=== PATIENT | female | born 1960 | race Caucasian/White ===

== ENCOUNTER 2019-04-26 14:00 | Observation (INO) | payer MEDICAID, OTHER ==
[2019-04-26 14:53] LABS: Absolute Lymphocytes (CBC) 1.5 K/uL (0.7-4.9); Basophils % 0.7 % (0-1.3); Eosinophils % 0.1 % (0-4.4); Lymphocytes % 26.9 % (15.3-44.8); MPV 7.9 fL (7.6-11.3); Monocytes % 4.9 % (3.3-12.3); RBC Red Blood Cell Count 4.66 M/uL (3.86-4.86)
[2019-04-26 14:54] LABS: Protime INR 1.08
[2019-04-26 15:11] LABS: ALT/SGPT 23 U/L (12-78); AST/SGOT 16 U/L (15-37); Albumin 3.7 g/dL (3.4-5.0); Alkaline Phosphatase 137 U/L (45-117); BUN Blood Urea Nitrogen 11 mg/dL (7-18); Bicarbonate 20 mmol/L (21-32); Bilirubin Direct 0.1 mg/dL (0-0.2); Bilirubin Total 0.4 mg/dL (0.2-1.0); Glucose Level 109 mg/dL (74-106); Magnesium 2.4 mg/dL (1.8-2.4); NT PRO-BNP 98 pg/mL (<125); Potassium 3.6 mmol/L (3.5-5.1); Protein, Total 7.9 g/dL (6.4-8.2); Sodium Level 141 mmol/L (136-145); Troponin (Emerg Dept Use Only) < 0.02 ng/mL (0.0-0.045)
--- NOTE | 2019-04-26 15:28 | ER ---
Nurse's Notes [facility] Name: Sharon Nunez Age: 58 yrs Sex: Female : 1960 Arrival Date: 04/26/2019 Time: 14:02 Bed 20 Private MD: Diagnosis: Unstable angina Presentation: 04/26 14:09 Presenting complaint: Patient states: chest pressure, SOB that began yesterday. Pt also aa5 states "I have an abdominal aneurysm and my belly just doesn't feel right". Transition of care: patient was not received from another setting of care. Onset of symptoms was April 2019. Risk Assessment: Do you want to hurt yourself or someone else? Patient reports no desire to harm self or others. Initial Sepsis Screen: Does the patient meet any 2 criteria? No. Patient's initial sepsis screen is negative. Does the patient have a suspected source of infection? No. Patient's initial sepsis screen is negative. Care prior to arrival: None. 14:09 Acuity: GER 2 aa5 14:09 Method Of Arrival: Ambulatory aa5 Historical: - Allergies: 14:12 No Known Allergies; aa5 - Home Meds: 14:25 Pristiq 100 mg oral Tb24 1 tab once daily [Active]; Plavix 75 mg Oral tab 1 tab once aa5 daily [Active]; Adderall XR 30 mg Oral cp24 twice a day [Active]; ropinirole 1 mg oral tab twice a day [Active]; zolpidem 10 mg Oral tab once daily [Active]; Seroquel 300 mg Oral tab 1 tab once daily [Active]; Lipitor 40 mg Oral tab once daily [Active]; clonazepam 2 mg oral TbDL 3 times per day [Active]; aspirin 81 mg Oral chew 1 tab once daily [Active]; tramadol 50 mg Oral tab 3 times a day [Active]; - PMHx: 14:12 ADD/ADHD; Hypertension; Abdominal aneurysm; Myocardial infarction; aa5 - PSHx: 14:12 Heart stents; aa5 14:13 Cholecystectomy; aa5 - Immunization history:: Adult Immunizations unknown. - Social history:: Smoking status: Patient uses tobacco products, denies chronic smoking, but will smoke occasionally. - Ebola Screening: : No symptoms or risks identified at this time. Screenin:46 Abuse screen: Denies threats or abuse. Denies injuries from another. Nutritional aj screening: No deficits noted. Tuberculosis screening: No symptoms or risk factors identified. Fall Risk None identified. Assessment: 14:46 General: Appears in no apparent distress. comfortable, Behavior is appropriate for age, aj anxious. Pain: Complains of pain in chest and abdomen Pain does not radiate. Pain began gradually. Cardiovascular: Reports chest pain, Capillary refill < 3 seconds in bilateral fingers Patient's skin is warm and dry. Respiratory: Airway is patent Respiratory effort is even, unlabored, Respiratory pattern is regular, symmetrical. Derm: Skin is intact, is healthy with good turgor, Skin is pink, warm \\T\\ dry. normal. 15:32 Reassessment: Patient appears in no apparent distress at this time. No changes from aj previously documented assessment. Patient and/or family updated on plan of care and expected duration. Pain level reassessed. Patient is alert, oriented x 3, equal unlabored respirations, skin warm/dry/pink. Patient requested HOB lowered and provided blankets to use as a pillow. Patient stated "I'm going to try to sleep while I wait for a room.". 16:46 Reassessment: Patient appears in no apparent distress at this time. No changes from aj previously documented assessment. Patient and/or family updated on plan of care and expected duration. Pain level reassessed. Patient is alert, oriented x 3, equal unlabored respirations, skin warm/dry/pink. Patient is resting comfortably in bed with eyes closed. In NAD. 19:23 Reassessment: Patient appears in no apparent distress at this time. No changes from aj previously documented assessment. Patient and/or family updated on plan of care and expected duration. Pain level reassessed. Patient reports pain continued. Physician notified, new orders given. Vital Signs: 14:13 BP 137 / 89; Pulse 104; Resp 18 S; Temp 99.6(O); Pulse Ox 97% on R/A; Weight 77.11 kg aa5 (R); Height 5 ft. 4 in. (162.56 cm) (R); Pain 7/10; 15:31 BP 143 / 77; Pulse 77; Resp 14; Pulse Ox 96% on R/A; aj 16:46 BP 124 / 73; Pulse 83; Resp 20; Pulse Ox 96% on R/A; aj 19:22 BP 116 / 54; Pulse 75; Resp 16; Pulse Ox 97% on R/A; aj 21:01 BP 135 / 74; Pulse 69; Resp 18; Temp 98.6; Pulse Ox 96% on R/A; aj 14:13 Body Mass Index 29.18 (77.11 kg, 162.56 cm) aa5 ED Course: 14:02 Patient arrived in ED. rg4 14:09 Arm band placed on. aa5 14:11 Triage completed. aa5 14:12 EKG completed in triage. Results shown to MD. aa5 14:17 Silas Finn, RN is Primary Nurse. bp 14:28 Jose Manuel Pierson MD is Attending Physician. gs 14:35 EKG done, by telephone technician. reviewed by Jose Manuel Pierson MD. dt2 14:46 Patient has correct armband on for positive identification. Placed in gown. Bed in low aj position. Call light in reach. Side rails up X2. child monitor on. Pulse ox on. NIBP on. 14:46 Inserted saline lock: 20 gauge in right antecubital area, using aseptic technique. aj Blood collected. Patient maintains SpO2 saturation greater than 95% on room air. 14:55 XRAY Chest (1 view) In Process Unspecified. EDMS 15:28 Javier Lorenzo DO is Hospitalizing Provider. gs 21:15 No provider procedures requiring assistance completed. Patient admitted, IV remains in aj place. intact. 21:16 Primary Nurse role handed off by Silas Finn, RN aj 21:32 Clara Garnica, RN is Primary Nurse. aj Administered Medications: 15:30 Drug: fentaNYL (PF) 50 mcg Route: IVP; Site: right antecubital; aj 16:48 Follow up: Response: Pain is unchanged, physician notified aj 15:30 Drug: Zofran 4 mg Route: IVP; Site: right antecubital; aj 16:48 Follow up: Response: Nausea is decreased aj 16:00 Drug: Nitro-Bid Ointment 2 % 0.5 inches Route: Transdermal; Site: anterior chest wall; bp 16:26 Drug: fentaNYL (PF) 50 mcg Route: IVP; Site: right antecubital; aj 16:48 Follow up: Response: Pain is decreased aj 19:21 Drug: morphine 4 mg Route: IVP; Site: right antecubital; austin 21:02 Follow up: Response: Pain is decreased aj 19:22 Drug: Zofran 4 mg Route: IVP; Site: right antecubital; [place]in 21:02 Follow up: Response: No adverse reaction austin Outcome: 15:28 Decision to Hospitalize by Provider. gerardo 21:15 Admitted to Tele accompanied by tech, via wheelchair, with chart, Report called to austin Martinez 21:15 Condition: good 21:15 Instructed on the need for admit. 21:16 Patient left the ED. austin 21:32 Patient left the ED. austin Signatures: Dispatcher [employer] EDClara Hurt RN RN Emilee Recinos, RN RN Katherine Calvillo4 Jose Manuel Pierson MD MD gs Peltier, Brian, RN RN Tonya Carlos dt2 Corrections: (The following items were deleted from the chart) 21:03 21:01 BP 135 / 74; Pulse 69bpm; Resp 18bpm; Pulse Ox 96% RA; austin avila
--- NOTE | 2019-04-26 15:28 | EDPHYS ---
Physician Documentation [facility] Name: Sharon Nunez Age: 58 yrs Sex: Female : 1960 Arrival Date: 04/26/2019 Time: 14:02 Bed 20 Private MD: ED Physician Jose Manuel Pierson HPI: 04/26 17:58 This 58 yrs old Female presents to ER via Ambulatory with complaints of Chest gs Pain. 17:58 The patient or guardian reports chest pain that is located primarily in the anterior gs chest wall. Onset: gradually, 2 day(s) ago, and became worse and became persistent. The pain radiates to diaphragm. Associated signs and symptoms: Pertinent positives: abdominal pain, shortness of breath, vomiting. The chest pain is described as a heaviness. Duration: The patient or guardian reports multiple episodes, that are intermittent, that wax and wane, with no pattern, the episodes last approximately 10 minute(s). Modifying factors: The symptoms are alleviated by nothing. the symptoms are aggravated by nothing. Severity of pain: At its worst the pain was severe in the emergency department the pain is unchanged. The patient has experienced similar episodes in the past, several times. 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 Historical: - Allergies: 14:12 No Known Allergies; aa5 - Home Meds: 14:25 Pristiq 100 mg oral Tb24 1 tab once daily [Active]; Plavix 75 mg Oral tab 1 tab once aa5 daily [Active]; Adderall XR 30 mg Oral cp24 twice a day [Active]; ropinirole 1 mg oral tab twice a day [Active]; zolpidem 10 mg Oral tab once daily [Active]; Seroquel 300 mg Oral tab 1 tab once daily [Active]; Lipitor 40 mg Oral tab once daily [Active]; clonazepam 2 mg oral TbDL 3 times per day [Active]; aspirin 81 mg Oral chew 1 tab once daily [Active]; tramadol 50 mg Oral tab 3 times a day [Active]; - PMHx: 14:12 ADD/ADHD; Hypertension; Abdominal aneurysm; Myocardial infarction; aa5 - PSHx: 14:12 Heart stents; aa5 14:13 Cholecystectomy; aa5 - Immunization history:: Adult Immunizations unknown. - Social history:: Smoking status: Patient uses tobacco products, denies chronic smoking, but will smoke occasionally. - Ebola Screening: : No symptoms or risks identified at this time. ROS: 17:58 All other systems are negative. gs Exam: 17:58 Head/Face: Normocephalic, atraumatic. Eyes: Pupils equal round and reactive to light, gs extra-ocular motions intact. Lids and lashes normal. Conjunctiva and sclera are non-icteric and not injected. Cornea within normal limits. Periorbital areas with no swelling, redness, or edema. ENT: Nares patent. No nasal discharge, no septal abnormalities noted. Tympanic membranes are normal and external auditory canals are clear. Oropharynx with no redness, swelling, or masses, exudates, or evidence of obstruction, uvula midline. Mucous membranes moist. Neck: Trachea midline, no thyromegaly or masses palpated, and no cervical lymphadenopathy. Supple, full range of motion without nuchal rigidity, or vertebral point tenderness. No Meningismus. Chest/axilla: Normal chest wall appearance and motion. Nontender with no deformity. No lesions are appreciated. Cardiovascular: Regular rate and rhythm with a normal S1 and S2. No gallops, murmurs, or rubs. Normal PMI, no JVD. No pulse deficits. Respiratory: Lungs have equal breath sounds bilaterally, clear to auscultation and percussion. No rales, rhonchi or wheezes noted. No increased work of breathing, no retractions or nasal flaring. Abdomen/GI: Soft, non-tender, with normal bowel sounds. No distension or tympany. No guarding or rebound. No evidence of tenderness throughout. Back: No spinal tenderness. No costovertebral tenderness. Full range of motion. Skin: Warm, dry with normal turgor. Normal color with no rashes, no lesions, and no evidence of cellulitis. MS/ Extremity: Pulses equal, no cyanosis. Neurovascular intact. Full, normal range of motion. Neuro: Awake and alert, GCS 15, oriented to person, place, time, and situation. Cranial nerves II-XII grossly intact. Motor strength 5/5 in all extremities. Sensory grossly intact. Cerebellar exam normal. Normal gait. 17:58 Constitutional: The patient appears alert, awake. 17:58 ECG was reviewed by the Attending Physician. Vital Signs: 14:13 BP 137 / 89; Pulse 104; Resp 18 S; Temp 99.6(O); Pulse Ox 97% on R/A; Weight 77.11 kg aa5 (R); Height 5 ft. 4 in. (162.56 cm) (R); Pain 7/10; 15:31 BP 143 / 77; Pulse 77; Resp 14; Pulse Ox 96% on R/A; aj 16:46 BP 124 / 73; Pulse 83; Resp 20; Pulse Ox 96% on R/A; aj 19:22 BP 116 / 54; Pulse 75; Resp 16; Pulse Ox 97% on R/A; aj 21:01 BP 135 / 74; Pulse 69; Resp 18; Temp 98.6; Pulse Ox 96% on R/A; aj 14:13 Body Mass Index 29.18 (77.11 kg, 162.56 cm) aa5 MDM: 14:53 Patient medically screened. gs 17:58 Differential diagnosis: abnormal EKG, acute myocardial infarction, coronary artery gs disease chest wall pain, unstable angina. Data reviewed: vital signs, nurses notes, lab test result(s), EKG, radiologic studies. Counseling: I had a detailed discussion with the patient and/or guardian regarding: the historical points, exam findings, and any diagnostic results supporting the discharge/admit diagnosis, lab results, radiology results, the need for further work-up and treatment in the hospital. Response to treatment: the patient's symptoms have markedly improved after treatment, the patient's condition has returned to base line, and as a result, I will admit patient. Physician consultation: Gio Lundberg MD and will see patient in office. 04/26 14:35 Order name: Basic Metabolic Panel; Complete Time: 15:04/26 14:35 Order name: CBC with Diff; Complete Time: 15:04/26 14:35 Order name: LFT's; Complete Time: 15:04/26 14:35 Order name: Magnesium; Complete Time: 15:04/26 14:35 Order name: NT PRO-BNP; Complete Time: 15:04/26 14:35 Order name: PT-INR; Complete Time: 15:04/26 14:35 Order name: Troponin (emerg Dept Use Only); Complete Time: 15:14 04/26 14:35 Order name: XRAY Chest (1 view); Complete Time: 15:41 aj 04/26 15:49 Order name: Lipase; Complete Time: 17:41 04/26 20:55 Order name: Troponin (emerg Dept Use Only) 04/26 21:30 Order name: Troponin (Emerg Dept Use Only) EDOR 04/26 14:35 Order name: EKG; Complete Time: 14:36 04/26 14:35 Order name: Cardiac monitoring; Complete Time: 14:48 04/26 14:35 Order name: EKG - Nurse/Tech; Complete Time: 14:48 04/26 14:35 Order name: IV Saline Lock; Complete Time: 14:48 04/26 14:35 Order name: Labs collected and sent; Complete Time: 14:48 04/26 14:35 Order name: O2 Per Protocol; Complete Time: 14:48 04/26 14:35 Order name: O2 Sat Monitoring; Complete Time: 14:49 EC:58 Rate is 99 beats/min. Rhythm is regular. MD interval is normal. QRS interval is normal. gs QT interval is normal. T waves are Flattened in lead aVL. Clinical impression: NSR w/ Non-specific ST/T Changes. Interpreted by me. Administered Medications: 15:30 Drug: fentaNYL (PF) 50 mcg Route: IVP; Site: right antecubital; aj 16:48 Follow up: Response: Pain is unchanged, physician notified aj 15:30 Drug: Zofran 4 mg Route: IVP; Site: right antecubital; aj 16:48 Follow up: Response: Nausea is decreased aj 16:00 Drug: Nitro-Bid Ointment 2 % 0.5 inches Route: Transdermal; Site: anterior chest wall; bp 16:26 Drug: fentaNYL (PF) 50 mcg Route: IVP; Site: right antecubital; aj 16:48 Follow up: Response: Pain is decreased aj 19:21 Drug: morphine 4 mg Route: IVP; Site: right antecubital; aj 21:02 Follow up: Response: Pain is decreased aj 19:22 Drug: Zofran 4 mg Route: IVP; Site: right antecubital; aj 21:02 Follow up: Response: No adverse reaction aj Disposition: 04/26/19 15:28 Hospitalization ordered by Javier Lorenzo for Inpatient Admission. Preliminary diagnosis is Unstable angina. - Bed requested for Telemetry/MedSurg (Inpatient). - Status is Inpatient Admission. aj - Condition is Stable. - Problem is new. - Symptoms have improved. UTI on Admission? No Signatures: Dispatcher [employer] EDMS Clara Garnica RN RN Emilee Sanders RN RN aa5 Duane Velazquez PA PA [id number] Jose Manuel Pierson MD MD Silas Finn RN RN bp Corrections: (The following items were deleted from the chart) 20:55 15:28 Hospitalization Ordered by Javier Lorenzo DO for Inpatient Admission. Preliminary jr8 diagnosis is Unstable angina. Bed requested for Telemetry/MedSurg (Inpatient). Status is Inpatient Admission. Condition is Stable. Problem is new. Symptoms have improved. UTI on Admission? No. 21:16 20:55 04/26/2019 15:28 Hospitalization Ordered by Javier Lorenzo DO for Inpatient aj Admission. Preliminary diagnosis is Unstable angina. Bed requested for Telemetry/MedSurg (Inpatient). Status is Inpatient Admission. Condition is Stable. Problem is new. Symptoms have improved. UTI on Admission? No. jr8 21:32 21:16 04/26/2019 15:28 Hospitalization Ordered by Javier Lorenzo DO for Inpatient aj Admission. Preliminary diagnosis is Unstable angina. Bed requested for Telemetry/MedSurg (Inpatient). Status is Inpatient Admission. Condition is Stable. Problem is new. Symptoms have improved. UTI on Admission? No. aj
--- NOTE | 2019-04-26 15:39 | RAD REPORT ---
EXAM DESCRIPTION: [place] Single View04/26/2019 2:55 pm CLINICAL HISTORY: Chest pain COMPARISON: 2011 FINDINGS: An opacity overlies left pulmonary artery Otherwise, lungs appear clear of acute infiltrate. The heart is normal size IMPRESSION: Opacity overlying the left pulmonary artery may represent confluence of pulmonary vessel s and/or descending thoracic aorta. It is recommended that the patient have a PA and lateral chest se pranay for further evaluation
[2019-04-26] MEDS ORDERED: FENTANYL CITR 100 MCG/2 ML ONE (15:41)
[2019-04-26] MEDS ORDERED: ONDANSETRON 4 MG/2 ML VIAL ONE ×2 (15:41→19:32)
[2019-04-26] MEDS ORDERED: NITROGLYCERIN 1 GM PKT TD ONE (16:04)
--- NOTE | 2019-04-26 16:10 | P.HP ---
Certification for Inpatient Patient admitted to: Observation With expected LOS: <2 Midnights Patient will require the following post-hospital care: None Practitioner: I am a practitioner with admitting privileges, knowledge of patient current condition, hospital course, and medical plan of care. Services: Services provided to patient in accordance with Admission requirements found in Title 42 Section 412.3 of the Code of Federal Regulations Patient History Date of Service: 04/26/19 Primary Care Provider: Dr. Rubio([facility]); Cardiology-Dr. Lundberg Reason for admission: Chest pain History of Present Illness: 58-year-old female presented to the emergency room with chest pain. Patient presented with chest pain to the center of her chest. It felt like a pressure-like sensation. It was associated with some nausea and shortness of breath. Patient with history of CAD and prior stents, tobacco abuse, AAA, depression with anxiety and hyperlipidemia. 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 She has a AAA measuring 5 cm. This has increased in size as compared to the past. She called her tractor engine assembler due to the chest pain. It was recommended that she go to the ER for further evaluation. In the ER patient evaluated. EKG shows no significant ST changes. Initial troponin unremarkable. Chest x-ray stable. CBC unremarkable. Sodium 141, potassium 3.6, BUN of 11, creatinine 0.9 with a GFR 63. Lipase pending. Patient was admitted for further evaluation and observation. When I saw the patient ER, she did not appear in any significant distress. Patient admits tobacco abuse. Reports a history of pancreatitis in the past. She reports that her cardiologists had anticipated the need for heart catheterization. Home medications list reviewed: Yes - Past Medical/Surgical History Diabetic: No -: CAD with prior stents -: Hyperlipidemia -: History of pancreatitis -: GERD -: Depression with anxiety -: AAA -: Heart catheterization with prior stent -: Cholecystectomy Psychosocial/ Personal History: Patient lives at home. - Family History Family History: Reviewed- Non-Contributory - Social History Smoking Status: Heavy Tobacco smoker (>10 cigarettes/day) Counseled patient to stop smoking for: less than 10 minutes Smoking therapy provided: Yes Patient receptive to therapy: Yes Alcohol use: No CD- Drugs: No Caffeine use: Yes Place of Residence: Home Review of Systems General: As per HPI Eyes: Unremarkable ENT: Unremarkable Respiratory: Shortness of Breath, As per HPI Cardiovascular: Chest Pain, As per HPI Gastrointestinal: Nausea, As per HPI Genitourinary: Unremarkable Musculoskeletal: Unremarkable Integumentary: Unremarkable Neurological: Unremarkable Lymphatics: Unremarkable Physical Examination - Physical Exam General: Alert, In no apparent distress, Oriented x3, Cooperative HEENT: Atraumatic, Normocephalic, PERRLA, Mucous membr. moist/pink, EOMI Neck: Supple, No Thyromegaly Respiratory: Clear to auscultation bilaterally, Normal air movement Cardiovascular: Normal pulses, Regular rate/rhythm Gastrointestinal: Normal bowel sounds, Soft and benign, Non-distended, No tenderness, No masses, No rebound, No guarding Musculoskeletal: No erythema, No tenderness, No warmth Integumentary: No tenderness/swelling, No erythema, No warmth, No cyanosis Neurological: Normal speech, Normal strength at 5/5 x4 extr, Normal tone, Normal affect - Studies Laboratory Data (last 24 hrs) 04/26/19 14:43: PT 12.7 H, INR 1.08 04/26/19 14:43: WBC 5.5, Hgb 13.6, Hct 41.0, Plt Count 319 04/26/19 14:43: Sodium 141, Potassium 3.6, BUN 11, Creatinine 0.91, Glucose 109 H, Magnesium 2.4, Total Bilirubin 0.4, AST 16, ALT 23, Alkaline Phosphatase 137 H Assessment and Plan - Plan Impression: Chest pain likely unstable angina with history of CAD and prior stents Hypertension Depression with anxiety Hyperlipidemia Tobacco abuse Suspect COPD Plan: Chest pain likely unstable angina with history of CAD and prior stents: Patient will be admitted for further evaluation and observation. Will monitor cardiac enzymes and telemetry. Will discuss case with cardiology. ER physician reported cardiology plans for heart catheterization to further evaluate. Will continue with her medication of aspirin, Plavix and Lipitor. Will add metoprolol. Will provide nitroglycerin and morphine as needed. Await further recommendation from cardiology. Will also start DVT prophylaxis- Lovenox. Hypertension: Blood pressure slightly elevated. Will start metoprolol. Depression with anxiety: Will restart her home medication of Pristiq, Seroquel and clonazepam. Hyperlipidemia: Continue home medication Tobacco abuse: Will provide tobacco cessation education. Will provide nicotine patch as needed. Suspect COPD: Will provide medication. Patient may require medication at discharge. Discharge Plan: Home Plan to discharge in: 24 Hours - Advance Directives Does patient have a Living Will: No Does patient have a Durable POA for Healthcare: No - Code Status/Comfort Care Code Status Assessed: Yes (Patient is full code) Time Spent Managing Pts Care (In Minutes): 55
--- NOTE | 2019-04-26 16:20 | EKG ---
Test Date: 2019-04-26 Test Time: 14:13:07 Lightning Rod Erector: EMI MEASUREMENT RESULTS: Intervals: Rate: 99 [place]: 124 QRSD: 76 QT: 360 QTc: 462 [place]: P: 61 [place]: 124 QRS: 17 T: 55 INTERPRETIVE STATEMENTS: Normal sinus rhythm Normal ECG Compared to ECG 05/12/2011 15:38:54 No significant changes Electronically Signed On 04-26-19 16:19:22 CDT by Gio Lundberg
[2019-04-26] MEDS ORDERED: MORPHINE 4 MG/ML SYR ONE (19:32)
[2019-04-26] MEDS ORDERED: NITROGLYCERIN 0.4 MG/TAB SL PRN (21:47)
[2019-04-26] MEDS ORDERED: ALBUTEROL 2.5 MG/3 ML NEB SOL NEB PRN (21:47)
[2019-04-26] MEDS ORDERED: ACETAMINOPHEN 500 MG TAB PO PRN (21:47)
[2019-04-26] MEDS ORDERED: IPRATROPIUM BROM 0.5MG/2.5ML NEB PRN (21:47)
[2019-04-26] MEDS: clonazePAM 1 MG TAB PO PRN (23:03)
[2019-04-26] MEDS: FAMOTIDINE 20 MG TAB PO SCH (23:03)
[2019-04-26] MEDS: ATORVASTATIN 40 MG TAB PO SCH (23:03)
[2019-04-26] MEDS: QUETIAPINE 100MG TAB PO SCH (23:03)
[2019-04-26] MEDS: METOPROLOL TAR 25 MG TAB PO SCH (23:04)
[2019-04-26 23:59] LABS: CKMB Creatine Kinase MB 1.2 ng/mL (0.3-3.6); Thyroid Stimulating Hormone 2.9 uIU/mL (0.360-3.740)
[2019-04-27 01:53] LABS: Urine Appearance CLOUDY; Urine Blood NEGATIVE (NEG); Urine Color YELLOW; Urine Glucose NEGATIVE (NEG); Urine Protein NEGATIVE (NEG); Urine Specific Gravity 1.025 (1.005-1.030); Urine Urobilinogen 0.2 mg/dL (0.2-1.0)
[2019-04-27 02:14] LABS: Urine Bilirubin NEGATIVE (NEG); Urine Microscopic Reflex ORDER UMIC
[2019-04-27 02:15] LABS: Urine Amorphous Sediment 4+ /HPF (NONE SEEN); Urine Bacteria <20 /HPF (<20); Urine Culture Reflex Order NOT NEEDED; Urine RBC <5 /HPF (NONE SEEN)
[2019-04-27] MEDS: KETOROLAC 30 MG/ML INJ IV PRN ×2 (04:24→23:47)
[2019-04-27] MEDS: METOPROLOL TAR 25 MG TAB PO SCH (04:48)
[2019-04-27 06:30] LABS: Absolute Lymphocytes (CBC) 2.5 K/uL (0.7-4.9); Basophils % 0.6 % (0-1.3); Eosinophils % 0.2 % (0-4.4); Hematocrit 35.6 % (36.0-45.0); Lymphocytes % 43.1 % (15.3-44.8); Monocytes % 7.7 % (3.3-12.3); RBC Red Blood Cell Count 4.09 M/uL (3.86-4.86)
[2019-04-27 06:44] LABS: BUN Blood Urea Nitrogen 16 mg/dL (7-18); Bicarbonate 25 mmol/L (21-32); CKMB Creatine Kinase MB < 1.0 ng/mL (0.3-3.6); Creatine Phosphokinase 89 U/L (26-192); Glucose Level 88 mg/dL (74-106); HDL Cholesterol 32 mg/dL (40-60); LDL Cholesterol, Calculated 75 (<130); Magnesium 2.5 mg/dL (1.8-2.4); Potassium 3.8 mmol/L (3.5-5.1); Sodium Level 142 mmol/L (136-145); Troponin I < 0.02 ng/mL (0.0-0.045)
[2019-04-27] MEDS ORDERED: NA CHLORIDE 0.9% 250 ML IV ONE (08:22)
[2019-04-27] MEDS: MORPHINE 2 MG/ML SYR IV PRN ×2 (08:51→16:23)
[2019-04-27] MEDS: ONDANSETRON 4 MG/2 ML VIAL IV PRN ×3 (08:51→23:47)
[2019-04-27] MEDS: ASPIRIN EC 81 MG TAB PO SCH (08:53)
[2019-04-27] MEDS: FAMOTIDINE 20 MG TAB PO SCH ×2 (08:56→20:30)
[2019-04-27] MEDS: NICOTINE 21 MG/PAT TD SCH (08:57)
[2019-04-27] MEDS: CLOPIDOGREL 75 MG TABLET PO SCH (08:58)
[2019-04-27] MEDS ORDERED: FAMOTIDINE 20 MG TAB PO SCH (09:00)
[2019-04-27] MEDS ORDERED: ENOXAPARIN 40 MG/0.4 ML SQ SCH (09:00)
[2019-04-27] MEDS: DESVENLAFAXINE SUCCINATE 50 MG ER TAB PO SCH (09:00)
[2019-04-27] MEDS ORDERED: POTASSIUM CL SA 10 MEQ TAB PO ONE (09:00)
[2019-04-27] MEDS ORDERED: HEPA 1000U/500MLS 1,000 UNIT/500 ML BAG IV ONE (10:33)
--- NOTE | 2019-04-27 12:29 | P.PN ---
Subjective Date of Service: 04/27/19 Primary Care Provider: Dr. Rubio([facility]); Cardiology-Dr. Lundberg Chief Complaint: Chest pain Subjective: Improving Physical Examination - Vital Signs Temperature: 97.4 F Blood Pressure: 94/56 Pulse: 66 Respirations: 18 Pulse Ox (%): 95 - Physical Exam General: Alert, In no apparent distress, Oriented x3, Cooperative HEENT: Atraumatic Neck: Supple Respiratory: Clear to auscultation bilaterally, Normal air movement Cardiovascular: Normal pulses, Regular rate/rhythm Gastrointestinal: Normal bowel sounds, Soft and benign, Non-distended, No tenderness, No masses, No rebound, No guarding Musculoskeletal: No erythema, No tenderness, No warmth Neurological: Normal speech, Normal strength at 5/5 x4 extr, Normal tone, Normal affect - Studies Laboratory Data (last 24 hrs) 04/26/19 14:43: Lipase 83 04/26/19 14:43: PT 12.7 H, INR 1.08 04/26/19 14:43: WBC 5.5, Hgb 13.6, Hct 41.0, Plt Count 319 04/26/19 14:43: Sodium 141, Potassium 3.6, BUN 11, Creatinine 0.91, Glucose 109 H, Magnesium 2.4, Total Bilirubin 0.4, AST 16, ALT 23, Alkaline Phosphatase 137 H Medications List Reviewed: Yes Assessment & Plan Discharge Plan: Home Plan to discharge in: 24 Hours Physician Review Additional Text: Impression: Chest pain likely unstable angina with history of CAD and prior stents Hypertension Depression with anxiety Hyperlipidemia Tobacco abuse Suspect COPD AAA Plan: Chest pain likely unstable angina with history of CAD and prior stents: So far cardiac enzymes unremarkable. Spoke with cardiology. Cardiology plans for heart catheterization to evaluate for CAD and AAA. Await findings with recommendation. Will discontinue metoprolol due to low blood pressure. Continue with current medications and plan of care. Possible discharge as early as today depending heart catheterization results. Hypertension: Discontinue metoprolol due to low blood pressure. Will continue to monitor blood pressures closely. Depression with anxiety: Continue home medication of Pristiq, Seroquel and clonazepam. Hyperlipidemia: Continue home medication Tobacco abuse: Will continue to provide tobacco cessation education. Will provide nicotine patch as needed. Suspect COPD: Will provide medication. Patient may require medication at discharge. AAA: Patient will have heart catheterization and angiogram to further evaluate. Await recommendations from cardiology. Time Spent Managing Pts Care (In Minutes): 55
[2019-04-27] MEDS ORDERED: LORazepam 2 MG/ML VIAL IV PRN (13:18)
[2019-04-27] MEDS ORDERED: NA CHLORIDE 0.9% 500 ML ONE (14:27)
[2019-04-27] MEDS ORDERED: FENTANYL CITR 100 MCG/2 ML ONE (14:43)
[2019-04-27] MEDS ORDERED: ATROPINE SULF 1 MG/10 ML SYR IV ONE (14:44)
[2019-04-27] MEDS ORDERED: MIDAZOLAM HCL 5 MG/5 ML INJ ONE ×2 (14:44→14:56)
[2019-04-27] MEDS ORDERED: NA CHLORIDE 0.9% 0 ML ONE (14:44)
--- NOTE | 2019-04-27 15:20 | CON ---
Date of Consultation: 04/26/2019 Reason For Consultation: Chest pain. History Of Present Illness: Ms. Nunez is a 58-year-old woman, she is known to me from my office. Recently, had an abdominal aortic ultrasound showing a large abdominal aortic aneurysm approximately 5 x 5 cm. She has had a history of coronary artery disease, hypertension, dyslipidemia, anxiety. Kyung kilgore came into the emergency room with substernal chest pressure radiating to both arms with nausea, ricci phoresis, shortness of breath. Denied PND, orthopnea, pedal edema, palpitations, or syncope. Her EK G was normal. Her troponin was negative. Past Medical History: As stated above. Allergies: NONE. Review of Systems: Negative. Social History: Positive for tobacco. Family History: Positive for heart disease. Medications: At home include aspirin, Plavix, Lipitor, clonazepam. Physical Examination: Vital Signs: Stable. She was afebrile. HEENT: Negative. Neck: Supple. No bruit. Chest: Clear to auscultation and percussion. Cardiac: Revealed a regular rhythm and rate. No murmurs, gallops, or rubs. Abdomen: Benign. Extremities: Revealed no clubbing, cyanosis, or edema. Diagnostic Data: As stated earlier. Impression And Plan: 1.Unstable angina. 2.Abdominal aortic aneurysm. 3.History of coronary artery disease. 4.Dyslipidemia. 5.Anxiety. I think I will proceed with a heart catheterization to define her coronary anatomy. Do an abdominal angiogram to see the abdominal aneurysm true size. The patient understands the risk and the benefits of the procedure and she agrees to proceed. The procedure will be done on 04/27/2019. CIERA/MP Voice ID: [id number] Report ID: [id number]
[2019-04-27] MEDS ORDERED: ACETAMINOPHEN 325 MG TABLET PO PRN (16:15)
[2019-04-27] MEDS: NA CHLORIDE 0.9% 1,000 ML IV SCH (16:26)
[2019-04-27] MEDS: QUETIAPINE 100MG TAB PO SCH (20:30)
[2019-04-27] MEDS: ATORVASTATIN 40 MG TAB PO SCH (20:30)
[2019-04-27] MEDS: clonazePAM 1 MG TAB PO PRN (20:31)
--- NOTE | 2019-04-28 02:17 | OP ---
Date of Procedure: 04/27/2019 Surgeon: Gio Lundberg MD Sleeping Bag Filler: Lucy Cheung. The patient was admitted on 04/26/[address] Lorenzo' service with unstable angina. Has also severe abdominal pain, known abdominal aortic aneurysm. She was brought to the label machine operator today as an inpatie nt. She had a selective coronary arteriogram, left heart catheterization, abdominal angiogram. She received 7 mg of Versed and 100 of fentanyl for sedation. A 6-Moroccan sheath introduced in the right common femoral artery. StarClose was used to close the case. Left heart catheterization with Judkin s catheter revealed 100% RCA occlusion. She had diffuse plaquing in the left anterior descending and circumflex with collaterals to the RCA. Abdominal angiography showed a large 5 x 5 aneurysm infrare nal, normal renals. Moderate right common iliac artery stenosis. There were no complications. Bloo d loss was 5 cc. Total conscious sedation was 45 minutes. Postoperative Diagnoses: Severe CAD, medical therapy; abdominal aortic aneurysm, possible EVAR or tobin rgery. I will get a CT angiogram on her abdomen. Supply Chain Business Analyst: Jamal Loera/MP Voice ID: [id number] Report ID: [id number]
[2019-04-28] MEDS: MORPHINE 2 MG/ML SYR IV PRN ×2 (04:17→10:25)
[2019-04-28 04:39] LABS: Potassium 4.2 mmol/L (3.5-5.1)
[2019-04-28] MEDS: NA CHLORIDE 0.9% 1,000 ML IV SCH (07:18)
[2019-04-28] MEDS ORDERED: ROPINIROLE HCL 1 MG TAB PO SCH (09:00)
--- NOTE | 2019-04-28 09:46 | RAD REPORT ---
EXAM DESCRIPTION: CT - CT ANGIO ABD/PELVIS W CONTRAST - 04/28/2019 8:26 am CLINICAL HISTORY: Abdominal aortic aneurysm, abdominal pain COMPARISON: None. TECHNIQUE: CT angiogram of the abdominal aorta was performed with MIPS. All CT scans are performed using dose optimization technique as appropriate and may include automated exposure control or mA/KV adjustment according to patient size. FINDINGS: Infrarenal abdominal aortic aneurysm is identified. The aneurysm is approximately 12 cm in length beginning approximately 5-6 mm caudal to the renal artery is and extending to the level of th e aortic bifurcation. The aneurysm demonstrates significant mural thrombus and measures maximally 5 c m in AP diameter. No acute finding related to this aneurysm such as evidence of aneurysm leakage, penetrating ulcer or perianeurysmal fibrosis. Atheromatous calcification is seen of both common iliac arteries however bot h common iliac arteries appear patent. The inferior mesenteric artery is also patent. The liver demonstrates mild fatty infiltration. Cholecystectomy clips are present. The spleen, pancre as, adrenal glands and kidneys show no acute process. No bowel obstruction, free fluid or abscess. Th e appendix appears normal. IMPRESSION: Infrarenal abdominal aortic aneurysm as detailed above.
--- NOTE | 2019-04-28 10:07 | P.DS ---
Admission Date: 04/26/19 Discharge Date: 04/28/19 Primary Care Provider: Dr. Rubio([facility]); Cardiology-Dr. Lundberg Disposition: ROUTINE DISCHARGE Discharge Condition: GOOD Reason for Admission: Chest pain Consultations: Cardiology-Dr. Lundberg Procedures: Heart Cath: Date of Procedure: 04/27/2019 Surgeon: Gio Lundberg MD Change Management Coordinator: Lucy Cheung. The patient was admitted on 04/26/[address] Lorenzo' service with unstable angina. Has also severe abdominal pain, known abdominal aortic aneurysm. She was brought to the cathode ray tube assembler today as an inpatient. She had a selective coronary arteriogram, left heart catheterization, abdominal angiogram. Left heart catheterization with Marlen catheter revealed 100% RCA occlusion. She had diffuse plaquing in the left anterior descending and circumflex with collaterals to the RCA. Abdominal angiography showed a large 5 x 5 aneurysm infrarenal, normal renals. Moderate right common iliac artery stenosis. There were no complications. Blood loss was 5 cc. Total conscious sedation was 45 minutes. Postoperative Diagnoses: Severe CAD, medical therapy; abdominal aortic aneurysm , possible EVAR or surgery. I will get a CT angiogram on her abdomen. CT angio: FINDINGS: Infrarenal abdominal aortic aneurysm is identified. The aneurysm is approximately 12 cm in length beginning approximately 5-6 mm caudal to the renal artery is and extending to the level of the aortic bifurcation. The aneurysm demonstrates significant mural thrombus and measures maximally 5 cm in AP diameter. No acute finding related to this aneurysm such as evidence of aneurysm leakage, penetrating ulcer or perianeurysmal fibrosis. Atheromatous calcification is seen of both common iliac arteries however both common iliac arteries appear patent. The inferior mesenteric artery is also patent. The liver demonstrates mild fatty infiltration. Cholecystectomy clips are present. The spleen, pancreas, adrenal glands and kidneys show no acute process. No bowel obstruction, free fluid or abscess. The appendix appears normal. IMPRESSION: Infrarenal abdominal aortic aneurysm as detailed above. Medical Problem List: Chest pain likely unstable angina with history of CAD and prior stents, status post heart catheterization showing 100% RCA occlusion, diffuse plaquing in the left anterior descending and circumflex with collaterals to the RCA Infrarenal abdominal aortic aneurysm, 12 cm in length approximately 5 to 6 mm caudal to the renal artery and extending to the level of aortic bifurcation, 5 cm in diameter Acute renal insufficiency Depression with anxiety Hyperlipidemia Tobacco abuse Restless leg syndrome Insomnia Suspect underlying COPD Brief History of Present Illness: 58-year-old female presented to the emergency room with chest pain. Patient presented with chest pain to the center of her chest. It felt like a pressure-like sensation. It was associated with some nausea and shortness of breath. Patient with history of CAD and prior stents, tobacco abuse, AAA, depression with anxiety and hyperlipidemia. She reports that she had an abdominal ultrasound done last Friday in her regional sales coordinator office. She has a AAA measuring 5 cm. This has increased in size as compared to the past. She called her regional sales coordinator due to the chest pain. It was recommended that she go to the ER for further evaluation. In the ER patient evaluated. EKG shows no significant ST changes. Initial troponin unremarkable. Chest x-ray stable. CBC unremarkable. Sodium 141, potassium 3.6, BUN of 11, creatinine 0.9 with a GFR 63. Lipase pending. Patient was admitted for further evaluation and observation. When I saw the patient ER, she did not appear in any significant distress. Patient admits tobacco abuse. Reports a history of pancreatitis in the past. She reports that her cardiologists had anticipated the need for heart catheterization. Hospital Course: Patient presented with chest pain with suspected unstable angina. Patient with prior history of CAD in prior stents. Cardiac enzymes unremarkable. Patient seen and evaluated by Cardiology. Cardiology perform heart catheterization to further address. Heart catheterization shows 100% RCA occlusion with diffuse plaquing in the left anterior descending and circumflex with collaterals to the RCA. Cardiology recommends continued medical management. Patient also with abdominal aortic aneurysm. This was evaluated further by Cardiology. CT angiogram shows infrarenal abdominal aortic aneurysm. 12 cm in length approximately 5-6 mm caudal to the renal artery and extending to the level of aortic bifurcation. Aneurysm demonstrate significant mural thrombus and measuring approximately 5 cm in AP diameter. Patient has been having some abdominal pain from time to time. Cardiology plans to send patient to CV surgery for further intervention and treatment. This would be done as an outpatient. At discharge she will continue with aspirin 81 mg daily and Plavix 75 mg daily. Recommend follow up with cardiology within 1 week further address Patient with mild renal insufficiency. Patient given IV fluid bolus. Patient stable at this time. Recommend to recheck BMP in 1 week. Recommended to increase oral intake prior to rechecking lab. This can be followed up by her PCP or cardiology. Patient with hyperlipidemia. LDL well controlled. Patient will continue with Lipitor 40 mg daily. Patient with depression with anxiety. This remained stable. Patient will continue with her home medications: Pristiq 100 mg daily, clonazepam 2 mg 1 pill 3 times a day as needed for anxiety, Seroquel 300 mg at bedtime and Ambien 10 mg at bedtime as needed for insomnia. Patient with tobacco cessation. Tobacco cessation education will be provided. Patient also takes Adderall 30 mg 1 pill twice daily, likely for adult ADD. Patient may have underlying COPD due to her history of tobacco abuse. Patient may benefit with pulmonary function test to evaluate for COPD. This can be done with the help of her PCP as an outpatient. Vital Signs/Physical Exam: Temp Pulse Resp BP Pulse Ox 98.4 F 79 16 100/67 96 04/28/19 08:00 04/28/19 08:00 04/28/19 08:00 04/28/19 08:00 04/28/19 08:00 General: Alert, In no apparent distress, Oriented x3, Cooperative HEENT: Atraumatic Neck: Supple Respiratory: Clear to auscultation bilaterally, Normal air movement Cardiovascular: Normal pulses, Regular rate/rhythm Gastrointestinal: Normal bowel sounds, Soft and benign, Non-distended, No tenderness, No masses, No rebound, No guarding Musculoskeletal: No erythema, No tenderness, No warmth Integumentary: No erythema, No warmth, No cyanosis Neurological: Normal speech, Normal strength at 5/5 x4 extr, Normal tone, Normal affect Laboratory Data at Discharge: WBC 5.7 K/uL (4.3-10.9) 04/27/19 05:41 Hgb 12.1 g/dL (12.0-15.0) 04/27/19 05:41 Hct 35.6 % (36.0-45.0) L 04/27/19 05:41 Plt Count 299 K/uL (152-406) 04/27/19 05:41 PT 12.7 SECONDS (9.5-12.5) H 04/26/19 14:43 INR 1.08 04/26/19 14:43 Sodium 142 mmol/L (136-145) 04/28/19 03:41 Potassium 4.2 mmol/L (3.5-5.1) 04/28/19 03:41 BUN 18 mg/dL (7-18) 04/28/19 03:41 Creatinine 1.22 mg/dL (0.55-1.3) 04/28/19 03:41 Glucose 88 mg/dL (74-106) 04/28/19 03:41 Magnesium 2.5 mg/dL (1.8-2.4) H 04/27/19 05:41 Total Bilirubin 0.4 mg/dL (0.2-1.0) 04/26/19 14:43 AST 16 U/L (15-37) 04/26/19 14:43 ALT 23 U/L (12-78) 04/26/19 14:43 Alkaline Phosphatase 137 U/L (45-117) H 04/26/19 14:43 Troponin I < 0.02 ng/mL (0.0-0.045) 04/27/19 05:41 Triglycerides 105 mg/dL (<150) 04/27/19 05:41 Cholesterol 128 mg/dL (<200) 04/27/19 05:41 HDL Cholesterol 32 mg/dL (40-60) L 04/27/19 05:41 Cholesterol/HDL Ratio 4.00 04/27/19 05:41 Lipase 83 U/L (73-393) 04/26/19 14:43 Home Medications: Aspirin 81 mg PO DAILY 04/26/19 Atorvastatin Calcium [Lipitor*] 40 mg PO BEDTIME 04/26/19 Clopidogrel Bisulfate [Plavix] 75 mg PO DAILY 04/26/19 Desvenlafaxine Succinate [Pristiq] 100 mg PO DAILY 04/26/19 Dextroamphetamine/Amphetamine [Adderall 30 mg Tablet] 30 mg PO BID 04/26/19 Quetiapine Fumarate [Seroquel] 300 mg PO BEDTIME 04/26/19 Ropinirole HCl [Requip*] 1 mg PO BID 04/26/19 Tramadol HCl [Ultram] 50 mg PO TID PRN 04/26/19 Zolpidem Tartrate 10 mg PO BEDTIME 04/26/19 clonazePAM [Clonazepam] 2 mg PO TID 04/26/19 Patient Discharge Instructions: 1. Recommend follow up with her PCP in 1 week. 2. Patient presented with chest pain with suspected unstable angina. Patient with prior history of CAD in prior stents. Cardiac enzymes unremarkable. Patient seen and evaluated by Cardiology. Cardiology perform heart catheterization to further address. Heart catheterization shows 100% RCA occlusion with diffuse plaquing in the left anterior descending and circumflex with collaterals to the RCA. Cardiology recommends continued medical management. Patient also with abdominal aortic aneurysm. This was evaluated further by Cardiology. CT angiogram shows infrarenal abdominal aortic aneurysm. 12 cm in length approximately 5-6 mm caudal to the renal artery and extending to the level of aortic bifurcation. Aneurysm demonstrate significant mural thrombus and measuring approximately 5 cm in AP diameter. Patient has been having some abdominal pain from time to time. Cardiology plans to send patient to CV surgery for further intervention and treatment. This would be done as an outpatient. At discharge she will continue with aspirin 81 mg daily and Plavix 75 mg daily. Recommend follow up with cardiology within 1 week further address. 3. Patient with mild renal insufficiency. Patient given IV fluid bolus. Patient stable at this time. Recommend to recheck BMP in 1 week. Recommended to increase oral intake prior to rechecking lab. This can be followed up by her PCP or cardiology. 4. Patient with hyperlipidemia. LDL well controlled. Patient will continue with Lipitor 40 mg daily. 5. Patient with depression with anxiety. This remained stable. Patient will continue with her home medications: Pristiq 100 mg daily, clonazepam 2 mg 1 pill 3 times a day as needed for anxiety, Seroquel 300 mg at bedtime and Ambien 10 mg at bedtime as needed for insomnia. 6. Patient with tobacco cessation. Tobacco cessation education will be provided. 7. Patient also takes Adderall 30 mg 1 pill twice daily, likely for adult ADD. 8. Patient may have underlying COPD due to her history of tobacco abuse. Patient may benefit with pulmonary function test to evaluate for COPD. This can be done with the help of her PCP as an outpatient. Diet: AHA Activity: Ad scott Time spent managing pt's care (in minutes): 55
[2019-04-28] MEDS: NACHLORIDE 0.45% 1,000 ML IV SCH ×2 (10:21→16:00)
[2019-04-28] MEDS: FAMOTIDINE 20 MG TAB PO SCH (10:22)
[2019-04-28] MEDS: DESVENLAFAXINE SUCCINATE 50 MG ER TAB PO SCH (10:23)
[2019-04-28] MEDS: NICOTINE 21 MG/PAT TD SCH (10:23)
[2019-04-28] MEDS: ASPIRIN EC 81 MG TAB PO SCH (10:23)
[2019-04-28] MEDS: CLOPIDOGREL 75 MG TABLET PO SCH (10:23)
[2019-04-28] MEDS ORDERED: NA CHLORIDE 0.9% 500 ML IV ONE (12:25)
[2019-04-28] MEDS: ONDANSETRON 4 MG/2 ML VIAL IV PRN (13:29)
[2019-04-28] MEDS: clonazePAM 1 MG TAB PO PRN (13:29)
== END 2019-04-28 17:48 | disposition home or self-care (01) ==
LOC: ER 14:00 → ERHOLD 15:54 → 4TH 21:11
PROVIDERS: ADMIT Family Medicine; ATTEND Family Medicine
DX: I25.10 Atherosclerotic heart disease of native coronary artery without angina pectoris (principal); I25.82 Chronic total occlusion of coronary artery; I71.4 Abdominal aortic aneurysm, without rupture; I70.8 Atherosclerosis of other arteries; I10 Essential (primary) hypertension; I25.2 Old myocardial infarction; N28.9 Disorder of kidney and ureter, unspecified; E78.5 Hyperlipidemia, unspecified; F41.8 Other specified anxiety disorders; F98.8 Other specified behavioral and emotional disorders with onset usually occurring in childhood and adolescence; G25.81 Restless legs syndrome; G47.00 Insomnia, unspecified; F17.210 Nicotine dependence, cigarettes, uncomplicated; Z79.82 Long term (current) use of aspirin; Z79.02 Long term (current) use of antithrombotics/antiplatelets; Z79.899 Other long term (current) drug therapy; Z95.5 Presence of coronary angioplasty implant and graft; Z82.49 Family history of ischemic heart disease and other diseases of the circulatory system
CPT/HCPCS: 36200; 36415; 71045; 74174; 80048; 80061; 80076; 81003; 81015; 82550; 82553; 83690; 83735; 83880; 84439; 84443; 84484; 85025; 85610; 93005; 93454; 96374; 96375; 99285; C1893; G0378; J0583; J1650; J2250; J2270; J2405; J3010; Q9967

== ENCOUNTER 2019-05-25 00:29 | Emergency (ER) | payer MEDICAID ==
--- OUTSIDE RECORDS SUMMARY | 2019-05-25 00:32 | XMS REPORT | Clinical Summary ---
:1960 Author Organization [facility] Address [address] [place] [address] Care Team Providers Name Role Phone Unavailable Primary Care Provider Unavailable Allergies Active Allergy Reactions Severity Noted Date Comments Adhesive 05/06/2019 Pt has blisters Medications Medication Sig Dispensed Refills Start Date End Date Status desvenlafaxine TK 1 T PO 2 05/01/2019 Active succinate (PRISTIQ) QAM 100 MG 24 hr tablet rOPINIRole (REQUIP) TK 1 T PO 2 04/19/2019 Active 1 MG tablet BID zolpidem (AMBIEN) 10 TK 1 T PO QD 2 04/20/2019 Active mg tablet HS QUEtiapine TK 1 T PO 2 05/01/2019 Active (SEROQUEL) 300 MG QHS tablet clonazePAM TK 1 T PO 2 04/28/2019 Active (KLONOPIN) 2 MG TID tablet atorvastatin TK 1 T PO QD. 5 03/27/2019 Active (LIPITOR) 40 MG tablet aspirin 81 MG EC Take 81 mg by 0 Active tablet mouth daily. acetaminophen-codein Take 1-2 56 tablet 0 05/24/2019 05/31/2019 Active e (TYLENOL #3) tablets by 300-30 mg per tablet mouth every 6 (six) hours as needed for Pain for up to 7 days No refills through my office. Max Daily Amount: 8 tablets metoprolol Take 0.5 30 tablet 2 05/24/2019 05/23/2020 Active (LOPRESSOR) 25 MG tablets (12.5 tablet mg total) by mouth 2 (two) times daily No more refills through my office. polyethylene glycol Use daily as 0 05/24/2019 Active (GLYCOLAX) 17 gram needed per packet package instructions. It is [id number] ter.. clopidogrel (PLAVIX) Resume taking 0 05/24/2019 Active 75 mg tablet as you were prior to admission. clopidogrel (PLAVIX) TK 1 T PO QD 3 05/01/2019 05/24/2019 Discontinued 75 mg tablet traMADol (ULTRAM) 50 TK 1 T PO 3 04/11/2019 05/24/2019 Discontinued mg tablet TID PRN dextroamphetamine-am TK 1 T PO QAM 0 04/21/2019 05/24/2019 Discontinued phetamine 30 mg Tab AND QD AT NOON clopidogrel (PLAVIX) Do not resume 0 05/24/2019 05/24/2019 Discontinued 75 mg tablet until ok'ed by Dr Simeon. Active Problems Problem Noted Date Fluid overload 05/19/2019 Acute post-operative pain 05/19/2019 S/P AAA repair using bifurcation graft 05/18/2019 Acute respiratory insufficiency 05/18/2019 Acute blood loss anemia 05/18/2019 On mechanically assisted ventilation 05/18/2019 Aneurysm AAA (abdominal aortic aneurysm) Coronary artery disease Encounters Date Type Specialty Care Team Description 05/18/2019 Surgery Cailin, REPAIR,AAA Alex Godwin MD 05/18/2019 Anesthesia Event An, Josh Jiménez 05/18/2019 - Hospital Encounter Cardiology Cailin, Abdominal aortic aneurysm (AAA) without rupture (HCC); 05/24/2019 Alex Godwin Acute blood loss anemia; Acute respiratory insufficiency; Ricardo Denny On mechanically assisted ventilation (HCC); MD Norberto S/P AAA repair using bifurcation graft; Acute post-operative pain; Hypervolemia, unspecified hypervolemia type 05/18/2019 Travel 05/06/2019 Hospital Encounter Radiology Nidia Hughes MD 05/06/2019 Hospital Encounter Alex Simeon MD 05/06/2019 Office Visit Cardiology Cail[place], Aneurysm (HCC); Alex Godwin Abdominal aortic aneurysm (AAA) without rupture (HCC); Coronary artery disease involving [place] coronary artery of [place] heart without angina pectoris 05/06/2019 Outside Orders Central Scheduling Nidia Hughes MD 05/06/2019 Orders Only General Internal Medicine after 05/24/2018 Family History Medical History Relation Name Comments Heart disease Father COPD Mother Relation Name Status Comments Father Mother Social History Tobacco Use Types Packs/Day Years Used Date Current Every Day Smoker Cigarettes 0.2 35 Smokeless Tobacco: Never Used Tobacco Cessation: Ready to Quit: No; Counseling Given: No Alcohol Use Drinks/Week oz/Week Comments No Alcohol Habits Answer Date Recorded How often do you have a drink containing alcohol? Never 05/06/2019 How many drinks containing alcohol do you have on a typical Not asked day when you are drinking? How often do you have six or more drinks on one occasion? Not asked Sex Assigned at Date Recorded Not on file Job Start Date Occupation Industry Not on file Not on file Not on file Travel History Travel Start Travel End No recent travel history available. Last Filed Vital Signs Vital Sign Reading Time Taken Blood Pressure 107/68 05/24/2019 12:16 PM CDT Pulse 80 05/24/2019 12:16 PM CDT Temperature 36.8 C (98.3 F) 05/24/2019 12:16 PM CDT Respiratory Rate 18 05/24/2019 12:16 PM CDT Oxygen Saturation 93% 05/24/2019 12:16 PM CDT Inhaled Oxygen Concentration 40% 05/18/2019 3:00 PM CDT Weight 79.2 kg (174 lb 9.7 oz) 05/24/2019 9:16 AM CDT Height 162.6 cm (5' 4") 05/18/2019 5:35 AM CDT Body Mass Index 29.97 05/24/2019 9:16 AM CDT Plan of Treatment Date Type Specialty Care Team Description 06/02/2019 Office Visit Cardiology Alex Simeon MD [address] [address] [phone] Implants Implanted 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 BASIC METABOLIC PANEL Routine 05/23/2019 10:18 Results for this (7) AM CDT procedure are in the results section. CBC W/PLT COUNT & Routine 05/23/2019 10:18 Results for this AUTO DIFFERENTIAL AM CDT procedure are in the results section. CBC W/PLT COUNT & Routine 05/22/2019 4:43 Results for this AUTO DIFFERENTIAL AM CDT procedure are in the results section. BASIC METABOLIC PANEL Routine 05/22/2019 4:43 Results for this (7) AM CDT procedure are in the results section. CBC W/PLT COUNT & Routine 05/22/2019 4:43 Results for this AUTO DIFFERENTIAL AM CDT procedure are in the results section. CBC W/PLT COUNT & Routine 05/21/2019 3:50 Results for this AUTO DIFFERENTIAL AM CDT procedure are in the results section. BASIC METABOLIC PANEL Routine 05/21/2019 3:50 Results for this (7) AM CDT procedure are in the results section. CBC W/PLT COUNT & Routine 05/21/2019 3:50 Results for this AUTO DIFFERENTIAL AM CDT procedure are in the results section. XR CHEST 1 VIEW Routine 05/20/2019 9:42 Results for this PORTABLE/BEDSIDE AM CDT procedure are in the results section. CBC W/PLT COUNT & Routine 05/20/2019 4:20 Results for this AUTO DIFFERENTIAL AM CDT procedure are in the results section. BASIC METABOLIC PANEL Routine 05/20/2019 4:20 Results for this (7) AM CDT procedure are in the results section. CBC W/PLT COUNT & Routine 05/20/2019 4:20 Results for this AUTO DIFFERENTIAL AM CDT procedure are in the results section. TRANSFUSION SERVICE 05/19/2019 6:04 REPORT - SCAN PM CDT POCT-GLUCOSE METER Routine 05/19/2019 6:32 Results for this AM CDT procedure are in the results section. XR CHEST 1 VIEW Routine 05/19/2019 5:00 Results for this PORTABLE/BEDSIDE AM CDT procedure are in the results section. POCT-GLUCOSE METER Routine 05/19/2019 3:59 Results for this AM CDT procedure are in the results section. CBC W/PLT COUNT & Routine 05/19/2019 3:43 Results for this AUTO DIFFERENTIAL AM CDT procedure are in the results section. CALCIUM, IONIZED Routine 05/19/2019 3:43 Results for this AM CDT procedure are in the results section. LACTIC ACID, ARTERIAL Routine 05/19/2019 3:43 Results for this AM CDT procedure are in the results section. BASIC METABOLIC PANEL Routine 05/19/2019 3:43 Results for this (7) AM CDT procedure are in the results section. CBC W/PLT COUNT & Routine 05/19/2019 3:43 Results for this AUTO DIFFERENTIAL AM CDT procedure are in the results section. POCT-GLUCOSE METER Routine 05/19/2019 12:48 Results for this AM CDT procedure are in the results section. HGB/HCT (H&H) - STAT STAT 05/19/2019 12:42 Results for this LAB AM CDT procedure are in the results section. GLUCOSE-STAT LAB STAT 05/19/2019 12:42 Results for this AM CDT procedure are in the results section. POTASSIUM-STAT LAB STAT 05/19/2019 12:42 Results for this AM CDT procedure are in the results section. SODIUM NA-STAT LAB STAT 05/19/2019 12:42 Results for this AM CDT procedure are in the results section. BLOOD GAS, ARTERIAL STAT 05/19/2019 12:42 Results for this AM CDT procedure are in the results section. MAGNESIUM STAT 05/19/2019 12:42 Results for this AM CDT procedure are in the results section. LACTIC ACID, ARTERIAL STAT 05/19/2019 12:42 Results for this AM CDT procedure are in the results section. RRL CRITICAL LABS STAT 05/19/2019 12:42 Results for this (ABG,NA,K,H&H,GLUCOSE AM CDT procedure are in ) the results section. CALCIUM, IONIZED STAT 05/18/2019 10:41 Results for this PM CDT procedure are in the results section. POCT-GLUCOSE METER Routine 05/18/2019 6:16 Results for this PM CDT procedure are in the results section. POCT-GLUCOSE METER Routine 05/18/2019 3:30 Results for this PM CDT procedure are in the results section. POTASSIUM Routine 05/18/2019 3:19 Results for this PM CDT procedure are in the results section. MAGNESIUM Routine 05/18/2019 3:19 Results for this PM CDT procedure are in the results section. CREATINE KINASE (CK) STAT 05/18/2019 3:19 Results for this PM CDT procedure are in the results section. CALCIUM, IONIZED Routine 05/18/2019 3:18 Results for this PM CDT procedure are in the results section. BLOOD GAS, ARTERIAL TALITA 05/18/2019 3:18 Results for this PM CDT procedure are in the results section. PREPARE RBC STAT 05/18/2019 10:57 Results for this AM CDT procedure are in the results section. XR CHEST 1 VIEW Routine 05/18/2019 10:57 Results for this PORTABLE/BEDSIDE AM CDT procedure are in the results section. CBC W/PLT COUNT & STAT 05/18/2019 10:48 Results for this AUTO DIFFERENTIAL AM CDT procedure are in the results section. HGB/HCT (H&H) - STAT STAT 05/18/2019 10:48 Results for this LAB AM CDT procedure are in the results section. GLUCOSE-STAT LAB STAT 05/18/2019 10:48 Results for this AM CDT procedure are in the results section. POTASSIUM-STAT LAB STAT 05/18/2019 10:48 Results for this AM CDT procedure are in the results section. SODIUM NA-STAT LAB STAT 05/18/2019 10:48 Results for this AM CDT procedure are in the results section. RRL CRITICAL LABS STAT 05/18/2019 10:48 Results for this (ABG,NA,K,H&H,GLUCOSE AM CDT procedure are in ) the results section. BLOOD GAS, ARTERIAL STAT 05/18/2019 10:48 Results for this AM CDT procedure are in the results section. PT/APTT STAT 05/18/2019 10:48 Results for this AM CDT procedure are in the results section. LACTIC ACID, ARTERIAL STAT 05/18/2019 10:48 Results for this AM CDT procedure are in the results section. PHOSPHORUS STAT 05/18/2019 10:48 Results for this AM CDT procedure are in the results section. MAGNESIUM STAT 05/18/2019 10:48 Results for this AM CDT procedure are in the results section. BASIC METABOLIC PANEL STAT 05/18/2019 10:48 Results for this (7) AM CDT procedure are in the results section. CBC W/PLT COUNT & STAT 05/18/2019 10:48 Results for this AUTO DIFFERENTIAL AM CDT procedure are in the results section. HGB/HCT (H&H) - STAT Routine 05/18/2019 10:00 Results for this LAB AM CDT procedure are in the results section. GLUCOSE-STAT LAB Routine 05/18/2019 10:00 Results for this AM CDT procedure are in the results section. POTASSIUM-STAT LAB Routine 05/18/2019 10:00 Results for this AM CDT procedure are in the results section. SODIUM NA-STAT LAB Routine 05/18/2019 10:00 Results for this AM CDT procedure are in the results section. BLOOD GAS, ARTERIAL Routine 05/18/2019 10:00 Results for this AM CDT procedure are in the results section. CALCIUM, IONIZED Routine 05/18/2019 10:00 Results for this AM CDT procedure are in the results section. RRL CRITICAL LABS Routine 05/18/2019 10:00 Results for this (ABG,NA,K,H&H,GLUCOSE AM CDT procedure are in ) the results section. HGB/HCT (H&H) - STAT STAT 05/18/2019 9:36 Results for this LAB AM CDT procedure are in the results section. GLUCOSE-STAT LAB STAT 05/18/2019 9:36 Results for this AM CDT procedure are in the results section. POTASSIUM-STAT LAB STAT 05/18/2019 9:36 Results for this AM CDT procedure are in the results section. SODIUM NA-STAT LAB STAT 05/18/2019 9:36 Results for this AM CDT procedure are in the results section. BLOOD GAS, ARTERIAL STAT 05/18/2019 9:36 Results for this AM CDT procedure are in the results section. CALCIUM, IONIZED Routine 05/18/2019 9:36 Results for this AM CDT procedure are in the results section. RRL CRITICAL LABS STAT 05/18/2019 9:36 Results for this (ABG,NA,K,H&H,GLUCOSE AM CDT procedure are in ) the results section. TISSUE EXAM AP Routine 05/18/2019 9:28 Results for this AM CDT procedure are in the results section. POCT-ACT Routine 05/18/2019 8:32 Results for this AM CDT procedure are in the results section. HGB/HCT (H&H) - STAT STAT 05/18/2019 8:28 Results for this LAB AM CDT procedure are in the results section. GLUCOSE-STAT LAB STAT 05/18/2019 8:28 Results for this AM CDT procedure are in the results section. POTASSIUM-STAT LAB STAT 05/18/2019 8:28 Results for this AM CDT procedure are in the results section. SODIUM NA-STAT LAB STAT 05/18/2019 8:28 Results for this AM CDT procedure are in the results section. BLOOD GAS, ARTERIAL STAT 05/18/2019 8:28 Results for this AM CDT procedure are in the results section. CALCIUM, IONIZED STAT 05/18/2019 8:28 Results for this AM CDT procedure are in the results section. RRL CRITICAL LABS STAT 05/18/2019 8:28 Results for this (ABG,NA,K,H&H,GLUCOSE AM CDT procedure are in ) the results section. HGB/HCT (H&H) - STAT STAT 05/18/2019 8:07 Results for this LAB AM CDT procedure are in the results section. GLUCOSE-STAT LAB STAT 05/18/2019 8:07 Results for this AM CDT procedure are in the results section. POTASSIUM-STAT LAB STAT 05/18/2019 8:07 Results for this AM CDT procedure are in the results section. SODIUM NA-STAT LAB STAT 05/18/2019 8:07 Results for this AM CDT procedure are in the results section. BLOOD GAS, ARTERIAL STAT 05/18/2019 8:07 Results for this AM CDT procedure are in the results section. CALCIUM, IONIZED STAT 05/18/2019 8:07 Results for this AM CDT procedure are in the results section. RRL CRITICAL LABS STAT 05/18/2019 8:07 Results for this (ABG,NA,K,H&H,GLUCOSE AM CDT procedure are in ) the results section. REPAIR,AAA 05/18/2019 7:30 Abdominal aortic AM CDT aneurysm (AAA) without rupture (HCC) Case Notes 3 HRS PER CAM Special Needs (ICU BED NEEDED) ABORH, MANUAL STAT 05/18/2019 6:02 AM CDT POCT-GLUCOSE METER Routine 05/18/2019 5:43 AM CDT TRANSFUSION SERVICE REPORT 05/07/2019 6:02 PM CDT - SCAN XR CHEST 2 VIEWS Routine 05/06/2019 2:57 PM CDT CBC W/PLT COUNT & AUTO Routine 05/06/2019 1:13 PM CDT Results for this DIFFERENTIAL procedure are in the results section. TYPE AND SCREEN, AUTOMATED Routine 05/06/2019 1:13 PM CDT CBC W/PLT COUNT & AUTO Routine 05/06/2019 1:13 PM CDT Results for this DIFFERENTIAL procedure are in the results section. BASIC METABOLIC PANEL (7) Routine 05/06/2019 1:13 PM CDT PLATELET AGGREGATION: Routine 05/06/2019 1:13 PM CDT Results for this FUNCTION SCREEN procedure are in the results section. ECG 12-LEAD Routine 05/06/2019 12:58 PM CDT Procedure Note - Interface, External Ris In - 05/06/2019 1:23 PM CDT Ventricular Rate 83 BPM Atrial Rate 83 BPM P-R Interval 136 ms QRS Duration 90 ms Q-T Interval 400 ms QTC Calculation(Bazett) 470 ms P Acosta 60 degrees R Acosta 16 degrees T Acosta 54 degrees Normal sinus rhythm Normal ECG No previous ECGs available ECG 12-LEAD Routine 05/06/2019 12:58 PM CDT after 05/24/2018 Results CBC with platelet count + automated diff (05/23/2019 10:18 AM CDT)Only the most recent of7 resultswithin the time period is included. WBC 4.9 3.5 - 10.5 K/L [facility] RBC 2.87 (L) 3.93 - 5.22 M/L [facility] Hemoglobin 8.5 (L) 11.2 - 15.7 GM/DL [facility] Hematocrit 26.8 (L) 34.1 - 44.9 % [facility] MCV 93.4 79.4 - 94.8 fL [facility] MCH 29.6 25.6 - 32.2 pg [facility] MCHC 31.7 (L) 32.2 - 35.5 GM/DL [facility] RDW 13.5 11.7 - 14.4 % [facility] Platelets 219 150 - 450 K/CU MM [facility] MPV 9.4 9.4 - 12.3 fL [facility] nRBC 0 0 - 0 /100 WBC [facility] % Neutros 72 % [facility] % Lymphs 21 % [facility] % Monos 6 % [facility] % Eos 0 % [facility] % Baso 0 % [facility] # Neutros 3.55 1.56 - 6.13 K/L [facility] # Lymphs 1.05 (L) 1.18 - 3.74 K/L [facility] # Monos 0.28 0.24 - 0.36 K/L [facility] # Eos 0.01 (L) 0.04 - 0.36 K/L [facility] # Baso 0.02 0.01 - 0.08 K/L [facility] Immature Granulocytes-Relative 0 0 - 1 % [facility] Specimen Blood Performing Organization Address City/State/Zipcode Phone Number [facility] [address] [place] [address] CENTER Basic Metabolic Panel (05/23/2019 10:18 AM CDT)Only the most recent of7 resultswithin the time period is included. Sodium 140 136 - 145 meq/L [facility] Potassium 3.5 3.5 - 5.1 meq/L [facility] Chloride 107 98 - 107 meq/L [facility] CO2 28 22 - 29 meq/L [facility] BUN 4 (L) 7 - 21 mg/dL [facility] Creatinine 0.71 0.57 - 1.25 mg/dL [facility] Glucose 136 (H) 70 - 105 mg/dL [facility] Calcium 8.1 (L) 8.4 - 10.2 mg/dL [facility] EGFR 85Comment: ESTIMATED GFR IS mL/min/1.73 sq m [facility] NOT ACCURATE CREATININE [facility] CLEARANCE IN PREDICTING GLOMERULAR FILTRATION RATE. ESTIMATED GFR IS NOT APPLICABLE FOR DIALYSIS PATIENTS. Specimen Blood Performing Organization Address City/State/Zipcode Phone Number [address] [address] [phone] CENTER XR chest 1 view portable / bedside (05/20/2019 9:42 AM CDT)Only the most recent of3 resultswithin the time period is included. Specimen Narrative Performed At FINAL REPORT [employer] RAD, CHEST, 1 VIEW, NON DEPT INDICATION: post op COMPARISON: Prior day's exam FINDINGS: Portable frontal view of the chest. IMPRESSION: Support Lines: Right IJ central venous catheter has been removed. Enteric tube is stable. Lungs and pleura: Bibasilar subsegmental atelectasis is present. No new consolidation or effusion. No pneumothorax. Heart and mediastinum: Stable contours. Additional findings: None. Signed: JR Yi Robert MD Report Verified Date/Time:05/20/2019 09:57:14 Reading Location: [facility] Radiology Reading Room Procedure Note Interface, External Ris In - 05/20/2019 9:59 AM CDT FINAL REPORT RAD, CHEST, 1 VIEW, NON DEPT INDICATION: post op COMPARISON: Prior day's exam FINDINGS: Portable frontal view of the chest. IMPRESSION: Support Lines: Right IJ central venous catheter has been removed. Enteric tube is stable. Lungs and pleura: Bibasilar subsegmental atelectasis is present. No new consolidation or effusion. No pneumothorax. Heart and mediastinum: Stable contours. Additional findings: None. Signed: JR Yi Robert MD Report Verified Date/Time: 05/20/2019 09:57:14 Reading Location: [facility] Radiology Reading Room Performing Organization Address City/State/Zipcode Phone Number [facility] TRANSFUSION SERVICE REPORT - SCAN (05/19/2019 6:04 PM CDT)Only the most recent of2 resultswithin the time period is included. Narrative Performed At POC-Glucose meter (05/19/2019 6:32 AM CDT)Only the most recent of6 resultswithin the time period is included. POC-Glucose Meter 139 (H)Comment: TESTED AT 70 - 110 mg/dL [facility] [address] [place] [address] Specimen Blood Performing Organization Address [facility] Phone Number [address] [address] [place] Calcium, Ionized (05/19/2019 3:43 AM CDT)Only the most recent of7 resultswithin the time period is included. Calcium, Ion 1.10 (L) 1.12 - 1.27 mmol/L [facility] pH, Blood 7.34 [facility] Specimen Blood Performing Organization Address [facility] Phone Number [address] [address] [phone] [place] Lactic Acid, Arterial (05/19/2019 3:43 AM CDT)Only the most recent of3 resultswithin the time period is included. Lactate, Art 1.3 0.5 - 2.2 mmol/L [facility] Specimen Blood, Arterial Performing Organization Address [facility] Phone Number [address] [address] [place] Potassium-Stat Lab (05/19/2019 12:42 AM CDT)Only the most recent of6 resultswithin the time period is included. Potassium 4.2 3.6 - 5.5 meq/L [facility] Specimen Blood, Arterial Performing Organization Address [facility] Phone Number [address] [address] [phone] [place] Sodium Na-Stat Lab (05/19/2019 12:42 AM CDT)Only the most recent of6 resultswithin the time period is included. Sodium 135 135 - 148 meq/L [facility] Specimen Blood, Arterial Performing Organization Address [facility] Phone Number [address] [address] [phone] [place] Glucose-Stat Lab (05/19/2019 12:42 AM CDT)Only the most recent of6 resultswithin the time period is included. Glucose 133 (H) 70 - 110 mg/dL [facility] Specimen Blood, Arterial Performing Organization Address [facility] Phone Number [address] [address] [place] HGB/HCT (H&H)-Stat Lab (05/19/2019 12:42 AM CDT)Only the most recent of6 resultswithin the time period is included. Hemoglobin 10.9 (L) 12.0 - 15.0 g/dL [facility] Hematocrit 32.0 (L) 36.0 - 45.0 % [facility] Specimen Blood, Arterial Performing Organization Address [facility] Phone Number [address] [address] CENTER Magnesium (05/19/2019 12:42 AM CDT)Only the most recent of3 resultswithin the time period is included. Magnesium 2.1 1.6 - 2.6 mg/dL [facility] Specimen Blood Performing Organization Address [facility] Phone Number [address] [address] [phone] [place] Blood gas, arterial (05/19/2019 12:42 AM CDT)Only the most recent of7 resultswithin the time period is included. pH, Arterial 7.35 7.35 - 7.45 [facility] pCO2, Arterial 45 35 - 45 mmHg [facility] pO2, Arterial 81 80 - 90 mmHg [facility] O2 Sat, Arterial 95.0 (L) 96.0 - 97.0 % [facility] HCO3, Arterial 24 21 - 29 mmol/L [facility] Base Excess, Arterial -1.3 -2.0 - 3.0 mmol/L [facility] Patient Temperature 37.6 C [facility] FIO2 36.0 % [facility] Specimen Blood, Arterial Performing Organization Address City/[facility] Phone Number [address] [address] [facility] Potassium (05/18/2019 3:19 PM CDT) Potassium 4.1 3.5 - 5.1 meq/L [facility] Specimen Blood Narrative Performed At Check Serum Potassium level 2 hours after [facility] oral potassium replacement completed or 30 min after intravenous potassium replacement. Performing Organization Address City/[facility] Phone Number [address] [address] [facility] Creatine Kinase (CK) (05/18/2019 3:19 PM CDT) Total CK 172 29 - 200 U/L [facility] Specimen Blood Narrative Performed At Check Serum Potassium level 2 hours after [facility] oral potassium replacement completed or 30 min after intravenous potassium replacement. Performing Organization Address City/[facility] Phone Number [address] [address] C[place] Prepare RBC (05/18/2019 10:57 AM CDT) CROSSMATCH COMPATIBLE SAFETRACE TX Unit ABO A Pos SAFETRACE TX UNIT NUMBER [id number] SAFETR[employer] TX Status RETURNED FROM ISSUE SAFETRACE TX Blood Bank Product RED BLOOD CELLS [place] PRODUCT CODE [id number] SAFETRACE [place] CROSSMATCH COMPATIBLE SAFETRACE TX Unit ABO A Pos SAFETRACE [place] UNIT NUMBER [id number] [place] Status RETURNED FROM ISSUE SAFET[place]ACE [place] Blood Bank Product RED BLOOD CELLS [place]AF[place] PRODUCT CODE [id number] SAFET[place]ACE [place] CROSSMATCH COMPATIBLE SAFETRACE TX Unit ABO A Pos SAFETRACE TX UNIT NUMBER [id number] SAF[place]ACE [place] Status RETURNED FROM ISSUE SAFETRACE [place] Blood Bank Product RED BLOOD CELLS SAFETRACE [place] PRODUCT CODE [id number] SAF[place] CROSSMATCH COMPATIBLE SAFETRACE TX Unit ABO A Pos SAFETRACE TX UNIT NUMBER [id number] SAFET[place]ACE [place] Status RETURNED FROM ISSUE SAFETRACE [place] Blood Bank Product RED BLOOD CELLS SAF[place]ACE [place] PRODUCT CODE [id number] SAFET[place]ACE [place] Performing Organization Address [facility] Phone Number SAFET[place]ACE [place] PT/aPTT (05/18/2019 10:48 AM CDT) Protime 17.3 (H) 11.9 - 14.2 seconds [facility] INR 1.5 <=5.9 [facility] PTT 31.8 22.5 - 36.0 seconds [facility] Specimen Blood Narrative Performed At Effective 03/17/2019: PT Reference Range [facility] Change New: 11.9-14.2Previous: 11.7-14.7 RECOMMENDED COUMADIN/WARFARIN INR THERAPY RANGES STANDARD DOSE: 2.0-3.0Includes: PROPHYLAXIS for venous thrombosis, systemic embolization; TREATMENT for venous thrombosis and/or pulmonary embolus. HIGH RISK: Target INR is 2.5-3.5 for patients wiht mechanical heart valves. Performing Organization Address City/State/Zipcode Phone Number [facility] [address] [place] [phone] CENTER Phosphorus (05/18/2019 10:48 AM CDT) Phosphorus 4.3 2.3 - 4.7 mg/dL [facility] Specimen Blood Performing Organization Address City/[facility]/Zipcode Phone Number [address] [address] [phone] CENTER Tissue Exam (05/18/2019 9:28 AM CDT) Case Report Surgical Pathology Report Case: [id number] [facility] Authorizing Provider:Alex Simeon, Collected: 05/18/2019 0928 [facility] Ordering Location: [facility] Received: 05/18/2019 1035 [employer] Pathologist: Ted Wolfe MD Specimen:Plaque, AORTIC PLAQUE DIAGNOSIS AORTA, ATHERECTOMY: [facility] CALCIFIC ATHEROSCLEROTIC PLAQUE [facility] FIBRIN THROMBUS Signing Pathologist Direct Phone Line: [phone] CPT Code(s) 72407 [facility] CLINICAL HISTORY Pre and postop diagnosis: [facility] abdominal aortic aneurysm [facility] without rupture SPECIMEN SOURCE Aortic plaque [facility] GROSS DESCRIPTION Received fresh labeled with the patient's name, accession number and "plaque" is a 6.2 x 5 x 3.5 cm aggregate of multiple, irregular red- yellow pieces of plaque admixed with an abundant amount of pale t [facility] an to yellow myxoid tissue. The plaque is serially sectioned to reveal calcification measuring up to 0.5 cm in thickness. The myxoid tissue is serially sectioned to reveal a central hole surrounded by h [facility] emorrhagic tissue. Air Route Traffic Controller sections are submitted. Section code: A1, plaque, following decalcification; A2, myxoid tissue with hemorrhagic hole. CG/pl MICROSCOPIC DESCRIPTION Performed [facility] Specimen Tissue Performing Organization Address City/[facility]/Zipcode Phone Number [address] [address] [place] [facility] ACTIVATED CLOTTING TIME (05/18/2019 8:32 AM CDT) Activated Clotting Time 268Comment: TESTED AT sec [facility] [address] [place] [id number] Specimen Blood Performing Organization Address City/[facility]/Zipcode Phone Number [facility] [address] [place] [address] [phone] CENTER ABORH, manual (05/18/2019 6:02 AM CDT) Rh Factor POS [facility] ABO Grouping A [facility] Specimen Blood Performing Organization Address City/State/Zipcode Phone Number [facility] [address] [place] [address] [phone] XR chest 2 views (05/06/2019 2:57 PM CDT) Specimen Narrative Performed At FINAL REPORT RIS Chest, 1 view. History: Preoperative evaluation, coronary artery disease Comparison: None available. Impression: The trachea is midline. The lungs are symmetrically expanded without evidence of focal consolidation, pneumothorax, or significant pleural effusion. The cardiac silhouette is within normal limits. There is ectasia/tortuosity of the thoracic aorta. No acute osseous abnormalities identified. The soft tissues are unremarkable. Signed: Antoni Verde MD Report Verified Date/Time:05/06/2019 15:02:38 Reading Location: [facility] B1 C013 Consult Reading Room Procedure Note Interface, External Ris In - 05/06/2019 3:04 PM CDT FINAL REPORT Chest, 1 view. History: Preoperative evaluation, coronary artery disease Comparison: None available. Impression: The trachea is midline. The lungs are symmetrically expanded without evidence of focal consolidation, pneumothorax, or significant pleural effusion. The cardiac silhouette is within normal limits. There is ectasia/tortuosity of the thoracic aorta. No acute osseous abnormalities identified. The soft tissues are unremarkable. Signed: Antoni Verde MD Report Verified Date/Time: 05/06/2019 15:02:38 Reading Location: [facility] B1 [id number] Consult Reading Room Performing Organization Address City/State/Zipcode Phone Number [facility] Platelet Aggregation: Function Screen (05/06/2019 1:13 PM CDT) Pathologist: Kelsie Moreno MD [facility] (electronic signature) [facility] Platelets 277 150 - 450 K/CU [facility] ADP 8 (L) 62 - 100 % [facility] Platelet Rich Plasma 295 200 - 300 k/cu [facility] Plt. Function Screen Pattern of disaggregation [facility] Interpretation present which may be [facility] characteristic of P2Y12 CENTER inhibitor effect. Correlation with medication history is required. Specimen Blood Narrative Performed At Platelet Function Screen results may be [facility] falsely low with platelet counts <75,000/cu mm. for patients on clopidogrel in past two weeks Performing Organization Address City/[facility]ode Phone Number [address] [address] CENTER Type and screen, automated (05/06/2019 1:13 PM CDT) ABO/RH AUTOMATED (BEAKER) A POSITIVE [facility] Ab Scrn NEGATIVE [facility] Specimen Blood Performing Organization Address City/State/Zipcode Phone Number [address] [address] [phone] Electrocardiogram, 12-lead (05/06/2019 12:58 PM CDT) Specimen Narrative Performed At Ventricular Rate 83 BPM GE MUSE Atrial Rate 83 BPM P-R Interval 136 ms QRS Duration 90 ms Q-T Interval 400 ms QTC Calculation(Bazett) 470 ms P Acosta 60 degrees R Acosta 16 degrees T Acosta 54 degrees Normal sinus rhythm Normal ECG No previous ECGs available Confirmed by MD Velazquez Roberto ([id number]) on 05/06/2019 2:35:30 PM Procedure Note Interface, External Ris In - 05/06/2019 2:35 PM CDT Ventricular Rate 83 BPM Atrial Rate 83 BPM P-R Interval 136 ms QRS Duration 90 ms Q-T Interval 400 ms QTC Calculation(Bazett) 470 ms P Acosta 60 degrees R Acosta 16 degrees T Acosta 54 degrees Normal sinus rhythm Normal ECG No previous ECGs available Confirmed by MD Velazquez Roberto ([id number]) on 05/06/2019 2:35:30 PM Performing Organization Address City/State/Zipcode Phone Number GE MUSE after 05/24/2018 Insurance Payer Benefit Plan / Group Subscriber ID Type Phone Address [place] MEDICAID [place] xxxxxxxxx Advance Directives For more information, please contact:[address] [phone] Code Status Date Activated Date Inactivated Comments Full Code 05/18/2019 10:47 AM 05/24/2019 7:07 PM This code status was determined by: Patient Full Code 05/18/2019 5:33 AM 05/18/2019 10:47 AM This code status was determined by: Patient
--- OUTSIDE RECORDS SUMMARY | 2019-05-25 00:33 | XMS REPORT ---
:1960 [facility] [address] [place] [address] Care Team Providers Name Role Phone ALEX SIMEON Unavailable Unavailable Problems This patient has no known problems. Allergies, Adverse Reactions, Alerts This patient has no known allergies or adverse reactions. Medications This patient has no known medications. Results Test Description Test Time Test Comments Text Results Atomic Results Result Comments BASIC METABOLIC PANEL 2019-05-23 10:51:00 Test Item Value Reference Range Comments SODIUM (BEAKER) (test 140 meq/L 136-145 hdxb=800) POTASSIUM (BEAKER) (test 3.5 meq/L 3.5-5.1 pzad=345) CHLORIDE (BEAKER) (test 107 meq/L 98-107 xbnm=646) CO2 (BEAKER) (test xcmy=504) 28 meq/L 22-29 BLOOD UREA NITROGEN (BEAKER) 4 mg/dL 7-21 (test dhpl=818) CREATININE (BEAKER) (test 0.71 mg/dL 0.57-1.25 yxtt=641) GLUCOSE RANDOM (BEAKER) 136 mg/dL 70-105 (test vpyy=590) CALCIUM (BEAKER) (test 8.1 mg/dL 8.4-10.2 nvfa=941) EGFR (BEAKER) (test 85 mL/min/1.73 sq m ESTIMATED GFR IS NOT xcys=9477) ACCURATE CREATININE CLEARANCE IN PREDICTING GLOMERULAR FILTRATION RATE. ESTIMATED GFR IS NOT APPLICABLE FOR DIALYSIS PATIENTS. CBC W/PLT COUNT & AUTO [id number] 10:30:00 Test Item Value Reference Range Comments WHITE BLOOD CELL COUNT (BEAKER) (test zvvk=986) 4.9 K/ L 3.5-10.5 RED BLOOD CELL COUNT (BEAKER) (test qcqw=071) 2.87 M/ L 3.93-5.22 HEMOGLOBIN (BEAKER) (test hzju=834) 8.5 GM/DL 11.2-15.7 HEMATOCRIT (BEAKER) (test elhw=277) 26.8 % 34.1-44.9 MEAN CORPUSCULAR VOLUME (BEAKER) (test utel=440) 93.4 fL 79.4-94.8 MEAN CORPUSCULAR HEMOGLOBIN (BEAKER) (test 29.6 pg 25.6-32.2 ubmd=421) MEAN CORPUSCULAR HEMOGLOBIN CONC (BEAKER) (test 31.7 GM/DL 32.2-35.5 gbeh=085) RED CELL DISTRIBUTION WIDTH (BEAKER) (test 13.5 % 11.7-14.4 gyhd=022) PLATELET COUNT (BEAKER) (test mdiu=957) 219 K/CU MM 150-450 MEAN PLATELET VOLUME (BEAKER) (test nxyf=876) 9.4 fL 9.4-12.3 NUCLEATED RED BLOOD CELLS (BEAKER) (test 0 /100 WBC 0-0 nwkj=101) NEUTROPHILS RELATIVE PERCENT (BEAKER) (test 72 % lqos=172) LYMPHOCYTES RELATIVE PERCENT (BEAKER) (test 21 % sqyb=131) MONOCYTES RELATIVE PERCENT (BEAKER) (test 6 % yjgw=523) EOSINOPHILS RELATIVE PERCENT (BEAKER) (test 0 % kwuv=330) BASOPHILS RELATIVE PERCENT (BEAKER) (test 0 % wgik=220) NEUTROPHILS ABSOLUTE COUNT (BEAKER) (test 3.55 K/ L 1.56-6.13 vqjl=223) LYMPHOCYTES ABSOLUTE COUNT (BEAKER) (test 1.05 K/ L 1.18-3.74 clkl=953) MONOCYTES ABSOLUTE COUNT (BEAKER) (test 0.28 K/ L 0.24-0.36 csii=519) EOSINOPHILS ABSOLUTE COUNT (BEAKER) (test 0.01 K/ L 0.04-0.36 xtwf=598) BASOPHILS ABSOLUTE COUNT (BEAKER) (test 0.02 K/ L 0.01-0.08 rdyx=205) IMMATURE GRANULOCYTES-RELATIVE PERCENT (BEAKER) 0 % 0-1 (test batq=4214) TISSUE [id number] 11:01:00Surgical Pathology Report Case: [id number] Authorizing Provider: Alex Simeon, Collected: 05/18/2019 0928 OrderingLocation: [facility] Received: 2018 1035 [facility] Pathologist: Ted Wolfe MD Specimen: Plaque, AORTIC PLAQUE AORTA, ATHERECTOMY:CALCIFIC ATHEROSCLEROTIC PLAQUEFIBRIN THROMBUS Signing Pathologist Direct Phone Line : [phone] signed by Ted Wolfe MD on 05/22/2019 at 11:01 [id number] and postop diagnosis: abdominal aortic aneurysm without ruptureAortic plaqueReceived fresh labeled with the patient's name, accession number and "plaque" is a 6.2 x 5 x 3.5 cm aggregate of multiple, irregular red- yellow pieces of plaque admixed with an abundant amount of pale summers to yellow myxoid tissue. The plaque is serially sectioned to reveal calcification measuring up to 0.5 cm in thickness. The myxoid tissue is serially sectioned to reveal a central hole surrounded by hemorrhagic tissue. Bulking Machine Operator sections are submitted.Section code: A1, plaque, following decalcification; A2, myxoid tissue with hemorrhagic hole. CG/pl PerformedBASIC METABOLIC [id number] 07 :41:00 Test Item Value Reference Range Comments SODIUM (BEAKER) (test 141 meq/L 136-145 boej=026) POTASSIUM (BEAKER) (test 3.7 meq/L 3.5-5.1 wkmk=779) CHLORIDE (BEAKER) (test 110 meq/L 98-107 fbhq=134) CO2 (BEAKER) (test 25 meq/L 22-29 qics=234) BLOOD UREA NITROGEN 5 mg/dL 7-21 (BEAKER) (test yjmq=954) CREATININE (BEAKER) (test 0.64 mg/dL 0.57-1.25 dbaq=082) GLUCOSE RANDOM (BEAKER) 95 mg/dL 70-105 (test sgbq=823) CALCIUM (BEAKER) (test 8.0 mg/dL 8.4-10.2 fpds=359) EGFR (BEAKER) (test 95 mL/min/1.73 sq m ESTIMATED GFR IS NOT njal=4291) ACCURATE CREATININE CLEARANCE IN PREDICTING GLOMERULAR FILTRATION RATE. ESTIMATED GFR IS NOT APPLICABLE FOR DIALYSIS PATIENTS. CBC W/PLT COUNT & AUTO [id number] 05:25:00 Test Item Value Reference Range Comments WHITE BLOOD CELL COUNT (BEAKER) (test waji=103) 4.4 K/ L 3.5-10.5 RED BLOOD CELL COUNT (BEAKER) (test yqqj=582) 2.57 M/ L 3.93-5.22 HEMOGLOBIN (BEAKER) (test rmqt=671) 7.6 GM/DL 11.2-15.7 HEMATOCRIT (BEAKER) (test lwzr=264) 23.4 % 34.1-44.9 MEAN CORPUSCULAR VOLUME (BEAKER) (test gine=054) 91.1 fL 79.4-94.8 MEAN CORPUSCULAR HEMOGLOBIN (BEAKER) (test 29.6 pg 25.6-32.2 yphe=836) MEAN CORPUSCULAR HEMOGLOBIN CONC (BEAKER) (test 32.5 GM/DL 32.2-35.5 xdjh=458) RED CELL DISTRIBUTION WIDTH (BEAKER) (test 13.3 % 11.7-14.4 vuur=632) PLATELET COUNT (BEAKER) (test yrll=202) 160 K/CU MM 150-450 MEAN PLATELET VOLUME (BEAKER) (test qvqu=357) 10.3 fL 9.4-12.3 NUCLEATED RED BLOOD CELLS (BEAKER) (test 0 /100 WBC 0-0 uiqw=801) NEUTROPHILS RELATIVE PERCENT (BEAKER) (test 56 % lxxe=020) LYMPHOCYTES RELATIVE PERCENT (BEAKER) (test 35 % hhih=432) MONOCYTES RELATIVE PERCENT (BEAKER) (test 8 % ufmi=550) EOSINOPHILS RELATIVE PERCENT (BEAKER) (test 0 % arim=959) BASOPHILS RELATIVE PERCENT (BEAKER) (test 1 % lypi=171) NEUTROPHILS ABSOLUTE COUNT (BEAKER) (test 2.50 K/ L 1.56-6.13 ipdt=711) LYMPHOCYTES ABSOLUTE COUNT (BEAKER) (test 1.53 K/ L 1.18-3.74 qrwd=539) MONOCYTES ABSOLUTE COUNT (BEAKER) (test 0.35 K/ L 0.24-0.36 byia=843) EOSINOPHILS ABSOLUTE COUNT (BEAKER) (test 0.01 K/ L 0.04-0.36 qdbb=200) BASOPHILS ABSOLUTE COUNT (BEAKER) (test 0.03 K/ L 0.01-0.08 ckre=756) IMMATURE GRANULOCYTES-RELATIVE PERCENT (BEAKER) 1 % 0-1 (test ryjh=3277) BASIC METABOLIC [id number] 05:05:00 Test Item Value Reference Range Comments SODIUM (BEAKER) (test 135 meq/L 136-145 jiih=841) POTASSIUM (BEAKER) (test 4.0 meq/L 3.5-5.1 gxdg=643) CHLORIDE (BEAKER) (test 103 meq/L 98-107 sdir=409) CO2 (BEAKER) (test 25 meq/L 22-29 zins=190) BLOOD UREA NITROGEN 7 mg/dL 7-21 (BEAKER) (test yckz=524) CREATININE (BEAKER) (test 0.70 mg/dL 0.57-1.25 yluy=710) GLUCOSE RANDOM (BEAKER) 125 mg/dL 70-105 (test ewtl=442) CALCIUM (BEAKER) (test 7.9 mg/dL 8.4-10.2 skdg=641) EGFR (BEAKER) (test 86 mL/min/1.73 sq m ESTIMATED GFR IS NOT qqnv=3043) ACCURATE CREATININE CLEARANCE IN PREDICTING GLOMERULAR FILTRATION RATE. ESTIMATED GFR IS NOT APPLICABLE FOR DIALYSIS PATIENTS. CBC W/PLT COUNT & AUTO [id number] 04:27:00 Test Item Value Reference Range Comments WHITE BLOOD CELL COUNT (BEAKER) (test jueq=542) 9.6 K/ L 3.5-10.5 RED BLOOD CELL COUNT (BEAKER) (test xylq=000) 2.79 M/ L 3.93-5.22 HEMOGLOBIN (BEAKER) (test yyzn=036) 8.4 GM/DL 11.2-15.7 HEMATOCRIT (BEAKER) (test owiz=124) 25.8 % 34.1-44.9 MEAN CORPUSCULAR VOLUME (BEAKER) (test hgqw=207) 92.5 fL 79.4-94.8 MEAN CORPUSCULAR HEMOGLOBIN (BEAKER) (test 30.1 pg 25.6-32.2 nxas=627) MEAN CORPUSCULAR HEMOGLOBIN CONC (BEAKER) (test 32.6 GM/DL 32.2-35.5 kvfe=476) RED CELL DISTRIBUTION WIDTH (BEAKER) (test 13.4 % 11.7-14.4 nxze=215) PLATELET COUNT (BEAKER) (test feke=711) 183 K/CU MM 150-450 MEAN PLATELET VOLUME (BEAKER) (test dbsw=076) 10.0 fL 9.4-12.3 NUCLEATED RED BLOOD CELLS (BEAKER) (test 0 /100 WBC 0-0 frjw=504) NEUTROPHILS RELATIVE PERCENT (BEAKER) (test 69 % vqxm=730) LYMPHOCYTES RELATIVE PERCENT (BEAKER) (test 22 % eeot=296) MONOCYTES RELATIVE PERCENT (BEAKER) (test 8 % lfvg=968) EOSINOPHILS RELATIVE PERCENT (BEAKER) (test 0 % lbpi=562) BASOPHILS RELATIVE PERCENT (BEAKER) (test 0 % useu=714) NEUTROPHILS ABSOLUTE COUNT (BEAKER) (test 6.66 K/ L 1.56-6.13 rnaj=850) LYMPHOCYTES ABSOLUTE COUNT (BEAKER) (test 2.11 K/ L 1.18-3.74 rrhe=158) MONOCYTES ABSOLUTE COUNT (BEAKER) (test 0.76 K/ L 0.24-0.36 bhjh=569) EOSINOPHILS ABSOLUTE COUNT (BEAKER) (test 0.03 K/ L 0.04-0.36 yybk=509) BASOPHILS ABSOLUTE COUNT (BEAKER) (test 0.02 K/ L 0.01-0.08 resu=142) IMMATURE GRANULOCYTES-RELATIVE PERCENT (BEAKER) 1 % 0-1 (test zufb=9822) RAD, CHEST, 1 VIEW, NON [id number] 09:57:00Reason for exam:->post opShould this be performed at the bedside?->YesFINAL REPORT RAD, CHEST, 1 VIEW, NON DEPT INDICATION: post op COMPARISON: Prior day' s exam FINDINGS: Portable frontal view of the chest. IMPRESSION: Support Lines: Right IJ central venous catheter has been removed. Enteric tube is stable. Lungs and pleura: Bibasilar subsegmental atelectasis is present. No new consolidation or effusion. No pneumothorax.Heart and mediastinum: Stable contours. Additional findings: None. Signed: JR Yi Robert MDReport Verified Date/Time: 05/20/2019 09:57:14 Reading Location: [facility] Radiology Reading Room Electronically signed by: BARBIE YI on 09:57 AMBASIC METABOLIC [id number] 05:51:00 Test Item Value Reference Range Comments SODIUM (BEAKER) (test 135 meq/L 136-145 cgiy=189) POTASSIUM (BEAKER) (test 4.3 meq/L 3.5-5.1 opds=040) CHLORIDE (BEAKER) (test 105 meq/L 98-107 uqus=556) CO2 (BEAKER) (test 25 meq/L 22-29 iqwe=635) BLOOD UREA NITROGEN 7 mg/dL 7-21 (BEAKER) (test gaef=900) CREATININE (BEAKER) (test 0.74 mg/dL 0.57-1.25 xyou=594) GLUCOSE RANDOM (BEAKER) 128 mg/dL 70-105 (test wjkx=153) CALCIUM (BEAKER) (test 7.9 mg/dL 8.4-10.2 ygtq=222) EGFR (BEAKER) (test 81 mL/min/1.73 sq m ESTIMATED GFR IS NOT jhvr=1638) ACCURATE CREATININE CLEARANCE IN PREDICTING GLOMERULAR FILTRATION RATE. ESTIMATED GFR IS NOT APPLICABLE FOR DIALYSIS PATIENTS. CBC W/PLT COUNT & AUTO [id number] 05:12:00 Test Item Value Reference Range Comments WHITE BLOOD CELL COUNT (BEAKER) (test pyav=634) 12.0 K/ L 3.5-10.5 RED BLOOD CELL COUNT (BEAKER) (test jflu=753) 3.04 M/ L 3.93-5.22 HEMOGLOBIN (BEAKER) (test gsmh=278) 8.8 GM/DL 11.2-15.7 HEMATOCRIT (BEAKER) (test qgnj=670) 28.6 % 34.1-44.9 MEAN CORPUSCULAR VOLUME (BEAKER) (test qalj=047) 94.1 fL 79.4-94.8 MEAN CORPUSCULAR HEMOGLOBIN (BEAKER) (test 28.9 pg 25.6-32.2 jywp=111) MEAN CORPUSCULAR HEMOGLOBIN CONC (BEAKER) (test 30.8 GM/DL 32.2-35.5 knlk=837) RED CELL DISTRIBUTION WIDTH (BEAKER) (test 13.7 % 11.7-14.4 grrf=118) PLATELET COUNT (BEAKER) (test ctxa=836) 161 K/CU MM 150-450 MEAN PLATELET VOLUME (BEAKER) (test hzel=098) 10.0 fL 9.4-12.3 NUCLEATED RED BLOOD CELLS (BEAKER) (test 0 /100 WBC 0-0 ktpv=914) NEUTROPHILS RELATIVE PERCENT (BEAKER) (test 79 % fxku=151) LYMPHOCYTES RELATIVE PERCENT (BEAKER) (test 13 % bhjj=832) MONOCYTES RELATIVE PERCENT (BEAKER) (test 7 % merj=234) EOSINOPHILS RELATIVE PERCENT (BEAKER) (test 0 % bnrz=800) BASOPHILS RELATIVE PERCENT (BEAKER) (test 0 % ksyc=060) NEUTROPHILS ABSOLUTE COUNT (BEAKER) (test 9.41 K/ L 1.56-6.13 abik=897) LYMPHOCYTES ABSOLUTE COUNT (BEAKER) (test 1.57 K/ L 1.18-3.74 klzn=246) MONOCYTES ABSOLUTE COUNT (BEAKER) (test 0.87 K/ L 0.24-0.36 kiva=001) EOSINOPHILS ABSOLUTE COUNT (BEAKER) (test 0.01 K/ L 0.04-0.36 ebzv=871) BASOPHILS ABSOLUTE COUNT (BEAKER) (test 0.02 K/ L 0.01-0.08 hppv=586) IMMATURE GRANULOCYTES-RELATIVE PERCENT (BEAKER) 1 % 0-1 (test jpxn=6121) POCT-GLUCOSE [id number] 15:24:00 Test Item Value Reference Range Comments POC-GLUCOSE METER (BEAKER) 139 mg/dL 70-110 TESTED AT [address] (test czmy=4261) [facility] [address] RAD, CHEST, 1 VIEW, NON [id number] 07:45:00Reason for exam:->post opShould this be performed at the bedside?->YesFINAL REPORT Portable chest. CLINICAL HISTORY: post op. COMPARISON STUDY: Chest x- ray from yesterday. FINDINGS: The cardiac silhouette is enlarged. The pulmonary parenchyma demonstrates mild interstitial markings, as on previous. There has been interval extubation. The remainingsupport lines and tubes are unchanged. No pneumothorax is seen. Degenerative changes are noted. IMPRESSION: Interval extubation. No other significant change. Signed: Manuel Walters Verified Date/Time: 05/19/2019 07:45:47 Reading Location: [facility] Diagnostic Imaging Reading Room - [place] [address] POCT-GLUCOSE [id number] 06:13:00 Test Item Value Reference Range Comments POC-GLUCOSE METER (BEAKER) 155 mg/dL 70-110 TESTED AT [facility] [address] [facility] (test lfii=9506) [facility] [address] POCT-GLUCOSE [id number] 06:13:00 Test Item Value Reference Range Comments POC-GLUCOSE METER (BEAKER) 145 mg/dL 70-110 TESTED AT [facility] [address] [facility] (test sgpj=8631) [facility] [address] CBC W/PLT COUNT & AUTO [id number] 04:44:00 Test Item Value Reference Range Comments WHITE BLOOD CELL COUNT (BEAKER) (test odwl=984) 10.1 K/ L 3.5-10.5 RED BLOOD CELL COUNT (BEAKER) (test olwj=841) 3.25 M/ L 3.93-5.22 HEMOGLOBIN (BEAKER) (test ansc=270) 9.7 GM/DL 11.2-15.7 HEMATOCRIT (BEAKER) (test pyfg=792) 29.8 % 34.1-44.9 MEAN CORPUSCULAR VOLUME (BEAKER) (test dlil=729) 91.7 fL 79.4-94.8 MEAN CORPUSCULAR HEMOGLOBIN (BEAKER) (test 29.8 pg 25.6-32.2 ypie=303) MEAN CORPUSCULAR HEMOGLOBIN CONC (BEAKER) (test 32.6 GM/DL 32.2-35.5 ymle=320) RED CELL DISTRIBUTION WIDTH (BEAKER) (test 13.3 % 11.7-14.4 fbrs=020) PLATELET COUNT (BEAKER) (test daxd=322) 133 K/CU MM 150-450 MEAN PLATELET VOLUME (BEAKER) (test baku=715) 9.7 fL 9.4-12.3 NUCLEATED RED BLOOD CELLS (BEAKER) (test 0 /100 WBC 0-0 yrni=087) NEUTROPHILS RELATIVE PERCENT (BEAKER) (test 83 % ehjt=877) LYMPHOCYTES RELATIVE PERCENT (BEAKER) (test 10 % zana=423) MONOCYTES RELATIVE PERCENT (BEAKER) (test 7 % igro=365) EOSINOPHILS RELATIVE PERCENT (BEAKER) (test 0 % vzzk=334) BASOPHILS RELATIVE PERCENT (BEAKER) (test 0 % prei=785) NEUTROPHILS ABSOLUTE COUNT (BEAKER) (test 8.39 K/ L 1.56-6.13 aksj=480) LYMPHOCYTES ABSOLUTE COUNT (BEAKER) (test 1.00 K/ L 1.18-3.74 fean=889) MONOCYTES ABSOLUTE COUNT (BEAKER) (test 0.66 K/ L 0.24-0.36 axud=517) EOSINOPHILS ABSOLUTE COUNT (BEAKER) (test 0.00 K/ L 0.04-0.36 fcda=412) BASOPHILS ABSOLUTE COUNT (BEAKER) (test 0.03 K/ L 0.01-0.08 rzsy=711) IMMATURE GRANULOCYTES-RELATIVE PERCENT (BEAKER) 0 % 0-1 (test jajx=9784) BASIC METABOLIC [id number] 04:41:00 Test Item Value Reference Range Comments SODIUM (BEAKER) (test 137 meq/L 136-145 vsal=431) POTASSIUM (BEAKER) (test 4.1 meq/L 3.5-5.1 ywxo=183) CHLORIDE (BEAKER) (test 109 meq/L 98-107 iokd=721) CO2 (BEAKER) (test 25 meq/L 22-29 qsht=924) BLOOD UREA NITROGEN 6 mg/dL 7-21 (BEAKER) (test fure=567) CREATININE (BEAKER) (test 0.69 mg/dL 0.57-1.25 eyhh=331) GLUCOSE RANDOM (BEAKER) 141 mg/dL 70-105 (test wyhg=340) CALCIUM (BEAKER) (test 7.6 mg/dL 8.4-10.2 jlkh=119) EGFR (BEAKER) (test 87 mL/min/1.73 sq m ESTIMATED GFR IS NOT ykko=0030) ACCURATE CREATININE CLEARANCE IN PREDICTING GLOMERULAR FILTRATION RATE. ESTIMATED GFR IS NOT APPLICABLE FOR DIALYSIS PATIENTS. LACTIC ACID, [id number] 04:14:00 Test Item Value Reference Range Comments LACTATE BLOOD ARTERIAL (2) (BEAKER) (test 1.3 mmol/L 0.5-2.2 zpdl=9853) CALCIUM, [id number] 04:11:00 Test Item Value Reference Range Comments CALCIUM IONIZED (BEAKER) (test owxi=085) 1.10 mmol/L 1.12-1.27 PH, BLOOD (BEAKER) (test fvve=1347) 7.34 [id number] 01:11:00 Test Item Value Reference Range Comments MAGNESIUM (BEAKER) (test lnko=671) 2.1 mg/dL 1.6-2.6 LACTIC ACID, [id number] 01:07:00 Test Item Value Reference Range Comments LACTATE BLOOD ARTERIAL (2) (BEAKER) (test 1.1 mmol/L 0.5-2.2 dtym=5886) SODIUM NA-STAT [id number] 00:48:00 Test Item Value Reference Range Comments SODIUM (BEAKER) (test dhoi=826) 135 meq/L 135-148 POTASSIUM-STAT [id number] 00:48:00 Test Item Value Reference Range Comments POTASSIUM (BEAKER) (test qsmo=652) 4.2 meq/L 3.6-5.5 BLOOD GAS, [id number] 00:48:00 Test Item Value Reference Range Comments PH ARTERIAL (BEAKER) (test xdvi=558) 7.35 7.35-7.45 PCO2 ARTERIAL (BEAKER) (test ffgb=919) 45 mmHg 35-45 PO2 ARTERIAL (BEAKER) (test tidp=968) 81 mmHg 80-90 O2 SATURATION ARTERIAL (BEAKER) (test kixz=608) 95.0 % 96.0-97.0 HCO3 ARTERIAL (BEAKER) (test gxpl=321) 24 mmol/L 21-29 BASE EXCESS ARTERIAL (BEAKER) (test esot=222) -1.3 mmol/L -2.0-3.0 PATIENT TEMPERATURE (BEAKER) (test pgce=5927) 37.6 C FIO2 (BEAKER) (test hufb=5660) 36.0 % GLUCOSE-STAT [id number] 00:48:00 Test Item Value Reference Range Comments GLUCOSE RANDOM (BEAKER) (test crbg=983) 133 mg/dL 70-110 HGB/HCT (H&H) - STAT [id number] 00:48:00 Test Item Value Reference Range Comments HEMOGLOBIN (BEAKER) (test snhq=993) 10.9 g/dL 12.0-15.0 HEMATOCRIT (BEAKER) (test vkee=126) 32.0 % 36.0-45.0 CALCIUM, [id number] 22:58:00 Test Item Value Reference Range Comments CALCIUM IONIZED (BEAKER) (test gspo=070) 1.09 mmol/L 1.12-1.27 PH, BLOOD (BEAKER) (test ukwc=3827) 7.37 POCT-GLUCOSE [id number] 18:18:00 Test Item Value Reference Range Comments POC-GLUCOSE METER (BEAKER) 134 mg/dL 70-110 TESTED AT [facility] [address] (test fdde=0065) [facility] [address] [id number] 15:58:00 Test Item Value Reference Range Comments POTASSIUM (BEAKER) (test otnr=687) 4.1 meq/L 3.5-5.1 Check Serum Potassium level 2 hours after oral potassium replacement completed or 30 min after intravenous potassium replacement.[id number] 15:58:00 Test Item Value Reference Range Comments MAGNESIUM (BEAKER) (test dqnd=256) 2.5 mg/dL 1.6-2.6 Check Serum Potassium level 2 hours after oral potassium replacement completed or 30 min after intravenous potassium replacement.CREATINE KINASE (CK) 15:58:00 Test Item Value Reference Range Comments CREATINE KINASE TOTAL (BEAKER) (test frae=903) 172 U/L 29-200 Check Serum Potassium level 2 hours after oral potassium replacement completed or 30 min after intravenous potassium replacement.CALCIUM, [id number] 15: 39:00 Test Item Value Reference Range Comments CALCIUM IONIZED (BEAKER) (test fsjk=529) 1.08 mmol/L 1.12-1.27 PH, BLOOD (BEAKER) (test jwuy=1442) 7.37 Check serum Ionized Calcium level after 4 hours after IV Calcium replacement.BLOOD GAS, [id number] 15:38:00 Test Item Value Reference Range Comments PH ARTERIAL (BEAKER) (test ysjs=688) 7.37 7.35-7.45 PCO2 ARTERIAL (BEAKER) (test fwmb=261) 39 mmHg 35-45 PO2 ARTERIAL (BEAKER) (test beto=335) 131 mmHg 80-90 O2 SATURATION ARTERIAL (BEAKER) (test xrqj=791) 98.6 % 96.0-97.0 HCO3 ARTERIAL (BEAKER) (test taqf=730) 22 mmol/L 21-29 BASE EXCESS ARTERIAL (BEAKER) (test khaq=314) -2.8 mmol/L -2.0-3.0 PATIENT TEMPERATURE (BEAKER) (test ehde=3694) 36.6 C FIO2 (BEAKER) (test erxy=7212) 40.0 % POCT-GLUCOSE [id number] 15:34:00 Test Item Value Reference Range Comments POC-GLUCOSE METER (BEAKER) 151 mg/dL 70-110 TESTED AT [facility] [address] [facility] (test cros=3400) [facility] [address] BASIC METABOLIC [id number] 12:05:00 Test Item Value Reference Range Comments SODIUM (BEAKER) (test 140 meq/L 136-145 kxpo=136) POTASSIUM (BEAKER) (test 4.6 meq/L 3.5-5.1 kmpo=350) CHLORIDE (BEAKER) (test 114 meq/L 98-107 pgbx=555) CO2 (BEAKER) (test 24 meq/L 22-29 uigp=995) BLOOD UREA NITROGEN 11 mg/dL 7-21 (BEAKER) (test nwnn=961) CREATININE (BEAKER) (test 0.70 mg/dL 0.57-1.25 esjj=717) GLUCOSE RANDOM (BEAKER) 147 mg/dL 70-105 (test xoga=271) CALCIUM (BEAKER) (test 7.9 mg/dL 8.4-10.2 ncvv=732) EGFR (BEAKER) (test 86 mL/min/1.73 sq m ESTIMATED GFR IS NOT esbr=2169) ACCURATE CREATININE CLEARANCE IN PREDICTING GLOMERULAR FILTRATION RATE. ESTIMATED GFR IS NOT APPLICABLE FOR DIALYSIS PATIENTS. [id number] 12:00:00 Test Item Value Reference Range Comments PHOSPHORUS (BEAKER) (test wazy=449) 4.3 mg/dL 2.3-4.7 [id number] 12:00:00 Test Item Value Reference Range Comments MAGNESIUM (BEAKER) (test fxys=360) 1.5 mg/dL 1.6-2.6 LACTIC ACID, [id number] 11:56:00 Test Item Value Reference Range Comments LACTATE BLOOD ARTERIAL (2) 1.5 mmol/L 0.5-2.2 Specimen slightly hemolyzed (BEAKER) (test irii=2520) CBC W/PLT COUNT & AUTO [id number] 11:44:00 Test Item Value Reference Range Comments WHITE BLOOD CELL COUNT (BEAKER) (test xsqq=776) 7.4 K/ L 3.5-10.5 RED BLOOD CELL COUNT (BEAKER) (test wkqc=858) 3.37 M/ L 3.93-5.22 HEMOGLOBIN (BEAKER) (test qlex=389) 10.0 GM/DL 11.2-15.7 HEMATOCRIT (BEAKER) (test eimu=113) 30.7 % 34.1-44.9 MEAN CORPUSCULAR VOLUME (BEAKER) (test vudl=221) 91.1 fL 79.4-94.8 MEAN CORPUSCULAR HEMOGLOBIN (BEAKER) (test 29.7 pg 25.6-32.2 gwsy=452) MEAN CORPUSCULAR HEMOGLOBIN CONC (BEAKER) (test 32.6 GM/DL 32.2-35.5 sxvw=638) RED CELL DISTRIBUTION WIDTH (BEAKER) (test 13.1 % 11.7-14.4 mnhq=574) PLATELET COUNT (BEAKER) (test tisl=782) 121 K/CU MM 150-450 MEAN PLATELET VOLUME (BEAKER) (test tsje=938) 9.5 fL 9.4-12.3 NUCLEATED RED BLOOD CELLS (BEAKER) (test 0 /100 WBC 0-0 dcib=732) NEUTROPHILS RELATIVE PERCENT (BEAKER) (test 74 % pknl=743) LYMPHOCYTES RELATIVE PERCENT (BEAKER) (test 20 % trrm=211) MONOCYTES RELATIVE PERCENT (BEAKER) (test 4 % bqzx=313) EOSINOPHILS RELATIVE PERCENT (BEAKER) (test 0 % uwuc=129) BASOPHILS RELATIVE PERCENT (BEAKER) (test 0 % kywk=429) NEUTROPHILS ABSOLUTE COUNT (BEAKER) (test 5.46 K/ L 1.56-6.13 mkys=128) LYMPHOCYTES ABSOLUTE COUNT (BEAKER) (test 1.50 K/ L 1.18-3.74 avyp=736) MONOCYTES ABSOLUTE COUNT (BEAKER) (test 0.26 K/ L 0.24-0.36 gbbk=912) EOSINOPHILS ABSOLUTE COUNT (BEAKER) (test 0.01 K/ L 0.04-0.36 ssjz=142) BASOPHILS ABSOLUTE COUNT (BEAKER) (test 0.02 K/ L 0.01-0.08 ztji=760) IMMATURE GRANULOCYTES-RELATIVE PERCENT (BEAKER) 1 % 0-1 (test uuzq=7209) [id number] 11:43:00 Test Item Value Reference Range Comments PROTIME (BEAKER) (test hnjy=150) 17.3 seconds 11.9-14.2 INR (BEAKER) (test dxsz=517) 1.5 <=5.9 PARTIAL THROMBOPLASTIN TIME (BEAKER) (test 31.8 seconds 22.5-36.0 rttg=134) Effective 03/17/2019: PT Reference Range ChangeNew: 11.9-14.2 Previous: 11.7- 14.7RECOMMENDED COUMADIN/WARFARIN INR THERAPY RANGESSTANDARD DOSE: 2.0-3.0 Includes: PROPHYLAXIS for venous thrombosis, systemic embolization; TREATMENT for venous thrombosis and/or pulmonary embolus.HIGH RISK: Target INR is2.5-3.5 for patients wiht mechanical heart valves.RAD, CHEST, 1 VIEW, NON [id number] 11:34:00For chest painReason for exam:->s/p AAA RepairShould this be performed at the bedside?->YesFINAL REPORT TECHNIQUE : Frontal chest radiograph dated 05/18/2019. CLINICAL HISTORY: Status post AAA repair COMPARISON STUDY: Radiographs dated 05/06/2019 IMPRESSION:Endotracheal tube is 4.5 cm above the pj. Enteric tube is seen with the tip below the edge of the film likely in the region of the gastric fundus. Right IJ vascular line is seen with the tip directed over the superior vena cava. Prominent interstitial lung markings are compatible with interstitial edema. No focal consolidation. No pleural effusion or pneumothorax. Cardiomediastinal silhouette is normal in size. No pulmonary edema. No fracture. Signed: Hannah Hueport Verified Date/Time: 05/18/2019 11:34:26 Reading Location: [facility] Reading Room BLOOD GAS, [id number] 11:06:00 Test Item Value Reference Range Comments PH ARTERIAL (BEAKER) (test hlfm=660) 7.30 7.35-7.45 PCO2 ARTERIAL (BEAKER) (test ydog=550) 46 mmHg 35-45 PO2 ARTERIAL (BEAKER) (test fflj=089) 143 mmHg 80-90 O2 SATURATION ARTERIAL (BEAKER) (test dclx=692) 98.7 % 96.0-97.0 HCO3 ARTERIAL (BEAKER) (test twqu=292) 23 mmol/L 21-29 BASE EXCESS ARTERIAL (BEAKER) (test syks=954) -4.0 mmol/L -2.0-3.0 PATIENT TEMPERATURE (BEAKER) (test opik=7645) 36.0 C FIO2 (BEAKER) (test djte=9162) 60.0 % GLUCOSE-STAT [id number] 11:06:00 Test Item Value Reference Range Comments GLUCOSE RANDOM (BEAKER) (test fvrd=349) 147 mg/dL 70-110 HGB/HCT (H&H) - STAT [id number] 11:06:00 Test Item Value Reference Range Comments HEMOGLOBIN (BEAKER) (test qrxf=413) 10.5 g/dL 12.0-15.0 HEMATOCRIT (BEAKER) (test quux=775) 31.0 % 36.0-45.0 SODIUM NA-STAT [id number] 11:04:00 Test Item Value Reference Range Comments SODIUM (BEAKER) (test slns=229) 139 meq/L 135-148 POTASSIUM-STAT [id number] 11:04:00 Test Item Value Reference Range Comments POTASSIUM (BEAKER) (test rmnj=936) 4.5 meq/L 3.6-5.5 [id number] 10:09:00 Test Item Value Reference Range Comments ACTIVATED CLOTTING TIME 268 sec TESTED AT [facility] [address] [facility] (BEAKER) (test qelr=970) [facility] [address] BLOOD GAS, [id number] 10:05:00 Test Item Value Reference Range Comments PH ARTERIAL (BEAKER) (test cenr=928) 7.29 7.35-7.45 PCO2 ARTERIAL (BEAKER) (test owpj=511) 41 mmHg 35-45 PO2 ARTERIAL (BEAKER) (test sewc=815) 162 mmHg 80-90 O2 SATURATION ARTERIAL (BEAKER) (test czpc=709) 98.9 % 96.0-97.0 HCO3 ARTERIAL (BEAKER) (test trom=789) 19 mmol/L 21-29 BASE EXCESS ARTERIAL (BEAKER) (test aqlp=863) -7.2 mmol/L -2.0-3.0 PATIENT TEMPERATURE (BEAKER) (test dbtr=6076) 35.8 C FIO2 (BEAKER) (test mxab=2019) 50.0 % GLUCOSE-STAT [id number] 10:05:00 Test Item Value Reference Range Comments GLUCOSE RANDOM (BEAKER) (test jcjh=702) 155 mg/dL 70-110 HGB/HCT (H&H) - STAT [id number] 10:05:00 Test Item Value Reference Range Comments HEMOGLOBIN (BEAKER) (test zrzy=105) 9.7 g/dL 12.0-15.0 HEMATOCRIT (BEAKER) (test aefd=686) 29.0 % 36.0-45.0 CALCIUM, [id number] 10:04:00 Test Item Value Reference Range Comments CALCIUM IONIZED (BEAKER) (test raxr=901) 1.21 mmol/L 1.12-1.27 PH, BLOOD (BEAKER) (test rbdq=4437) 7.27 SODIUM NA-STAT [id number] 10:03:00 Test Item Value Reference Range Comments SODIUM (BEAKER) (test bqwe=909) 138 meq/L 135-148 POTASSIUM-STAT [id number] 10:03:00 Test Item Value Reference Range Comments POTASSIUM (BEAKER) (test mlhq=484) 4.0 meq/L 3.6-5.5 SODIUM NA-STAT [id number] 09:44:00 Test Item Value Reference Range Comments SODIUM (BEAKER) (test xpva=065) 137 meq/L 135-148 POTASSIUM-STAT [id number] 09:44:00 Test Item Value Reference Range Comments POTASSIUM (BEAKER) (test hiun=088) 4.1 meq/L 3.6-5.5 CALCIUM, [id number] 09:44:00 Test Item Value Reference Range Comments CALCIUM IONIZED (BEAKER) (test rmxt=143) 1.21 mmol/L 1.12-1.27 PH, BLOOD (BEAKER) (test yvdf=4038) 7.24 BLOOD GAS, [id number] 09:44:00 Test Item Value Reference Range Comments PH ARTERIAL (BEAKER) (test vscc=886) 7.26 7.35-7.45 PCO2 ARTERIAL (BEAKER) (test ucpz=797) 42 mmHg 35-45 PO2 ARTERIAL (BEAKER) (test kvpv=808) 161 mmHg 80-90 O2 SATURATION ARTERIAL (BEAKER) (test pobg=946) 98.9 % 96.0-97.0 HCO3 ARTERIAL (BEAKER) (test fysc=882) 19 mmol/L 21-29 BASE EXCESS ARTERIAL (BEAKER) (test ifcc=309) -8.0 mmol/L -2.0-3.0 PATIENT TEMPERATURE (BEAKER) (test qdqd=1265) 35.6 C FIO2 (BEAKER) (test pygk=4633) 49.0 % GLUCOSE-STAT [id number] 09:44:00 Test Item Value Reference Range Comments GLUCOSE RANDOM (BEAKER) (test vskc=655) 148 mg/dL 70-110 HGB/HCT (H&H) - STAT [id number] 09:44:00 Test Item Value Reference Range Comments HEMOGLOBIN (BEAKER) (test fjep=496) 8.6 g/dL 12.0-15.0 HEMATOCRIT (BEAKER) (test pmoi=507) 25.0 % 36.0-45.0 CALCIUM, [id number] 08:36:00 Test Item Value Reference Range Comments CALCIUM IONIZED (BEAKER) (test fdrm=776) 1.01 mmol/L 1.12-1.27 PH, BLOOD (BEAKER) (test vbri=6706) 7.33 BLOOD GAS, [id number] 08:36:00 Test Item Value Reference Range Comments PH ARTERIAL (BEAKER) (test auwn=311) 7.34 7.35-7.45 PCO2 ARTERIAL (BEAKER) (test aktu=378) 36 mmHg 35-45 PO2 ARTERIAL (BEAKER) (test sasv=981) 295 mmHg 80-90 O2 SATURATION ARTERIAL (BEAKER) (test rxxv=152) 99.7 % 96.0-97.0 HCO3 ARTERIAL (BEAKER) (test simr=456) 19 mmol/L 21-29 BASE EXCESS ARTERIAL (BEAKER) (test isoi=571) -6.4 mmol/L -2.0-3.0 PATIENT TEMPERATURE (BEAKER) (test unyy=4129) 36.3 C FIO2 (BEAKER) (test tjjs=7493) 70.0 % GLUCOSE-STAT [id number] 08:36:00 Test Item Value Reference Range Comments GLUCOSE RANDOM (BEAKER) (test whhj=943) 127 mg/dL 70-110 HGB/HCT (H&H) - STAT [id number] 08:36:00 Test Item Value Reference Range Comments HEMOGLOBIN (BEAKER) (test ijzo=319) 9.0 g/dL 12.0-15.0 HEMATOCRIT (BEAKER) (test xnsi=614) 26.0 % 36.0-45.0 SODIUM NA-STAT [id number] 08:35:00 Test Item Value Reference Range Comments SODIUM (BEAKER) (test omwh=871) 135 meq/L 135-148 POTASSIUM-STAT [id number] 08:35:00 Test Item Value Reference Range Comments POTASSIUM (BEAKER) (test sbjv=789) 3.5 meq/L 3.6-5.5 BLOOD GAS, [id number] 08:14:00 Test Item Value Reference Range Comments PH ARTERIAL (BEAKER) (test jdqa=792) 7.35 7.35-7.45 PCO2 ARTERIAL (BEAKER) (test rwoc=746) 44 mmHg 35-45 PO2 ARTERIAL (BEAKER) (test ivsy=373) 246 mmHg 80-90 O2 SATURATION ARTERIAL (BEAKER) (test bvbv=237) 99.5 % 96.0-97.0 HCO3 ARTERIAL (BEAKER) (test puho=786) 24 mmol/L 21-29 BASE EXCESS ARTERIAL (BEAKER) (test gpuu=130) -2.3 mmol/L -2.0-3.0 PATIENT TEMPERATURE (BEAKER) (test obvk=9793) 36.5 C FIO2 (BEAKER) (test lwut=7552) 50.0 % GLUCOSE-STAT [id number] 08:14:00 Test Item Value Reference Range Comments GLUCOSE RANDOM (BEAKER) (test uzem=408) 120 mg/dL 70-110 HGB/HCT (H&H) - STAT [id number] 08:14:00 Test Item Value Reference Range Comments HEMOGLOBIN (BEAKER) (test hbid=655) 11.9 g/dL 12.0-15.0 HEMATOCRIT (BEAKER) (test eiwo=787) 35.0 % 36.0-45.0 CALCIUM, [id number] 08:13:00 Test Item Value Reference Range Comments CALCIUM IONIZED (BEAKER) (test dilx=904) 1.12 mmol/L 1.12-1.27 PH, BLOOD (BEAKER) (test jaoy=9412) 7.34 SODIUM NA-STAT [id number] 08:13:00 Test Item Value Reference Range Comments SODIUM (BEAKER) (test wdvo=684) 137 meq/L 135-148 POTASSIUM-STAT [id number] 08:13:00 Test Item Value Reference Range Comments POTASSIUM (BEAKER) (test zyui=543) 4.1 meq/L 3.6-5.5 POCT-GLUCOSE [id number] 06:22:00 Test Item Value Reference Range Comments POC-GLUCOSE METER (BEAKER) 122 mg/dL 70-110 TESTED AT [facility] [address] [place] [address] (test sjri=0039) [facility] [address] PLATELET AGGREGATION: FUNCTION [id number] 16:26:00 Test Item Value Reference Range Comments FQAL-DRNHDRCFAGV-2013 (BEAKER) Kelsie Moreno MD (electronic (test nzgp=5833) signature) PLATELET COUNT AGG (BEAKER) 277 K/CU MM 150-450 (test gaun=3759) PLATELET RICH PLASMA(BEAKER) 295 k/cu mm 200-300 (test qukl=9545) PLATELET FUNCTION SCREEN Pattern of disaggregation INTERPRETATION (BEAKER) (test present which may be nqhg=3865) characteristic of P2Y12 inhibitor effect. Correlation with medication history is required. Platelet Function Screen results may be falsely low with platelet counts<75, 000/cu mm.for patients on clopidogrel in past two weeksRAD, CHEST, 2 [id number] 15:02:00Reason for exam:->Preop screenIs the patient ?->N/ AFINAL REPORT Chest, 1 view. History: Preoperative evaluation, coronary arterydisease Comparison: None available. Impression: The trachea is midline. The lungs are symmetrically expanded without evidence of focal consolidation, pneumothorax, or significant pleural effusion. The cardiac silhouette is within normal limits. There is ectasia/tortuosity of the thoracic aorta. No acute osseous abnormalities identified. The soft tissues are unremarkable. Signed: Antoni Verde MDReport Verified Date/Time: 05/06/2019 15: 02:38 Reading Location: [facility] B1 C013W Consult Reading Room [facility] METABOLIC [id number] 13 :37:00 Test Item Value Reference Range Comments SODIUM (BEAKER) (test 137 meq/L 136-145 gurg=933) POTASSIUM (BEAKER) (test 3.4 meq/L 3.5-5.1 mydw=594) CHLORIDE (BEAKER) (test 105 meq/L 98-107 cmui=572) CO2 (BEAKER) (test 20 meq/L 22-29 wloj=918) BLOOD UREA NITROGEN 10 mg/dL 7-21 (BEAKER) (test nzbr=585) CREATININE (BEAKER) (test 0.96 mg/dL 0.57-1.25 uwwt=131) GLUCOSE RANDOM (BEAKER) 146 mg/dL 70-105 (test piti=946) CALCIUM (BEAKER) (test 8.8 mg/dL 8.4-10.2 lkex=910) EGFR (BEAKER) (test 60 mL/min/1.73 sq m ESTIMATED GFR IS NOT bmgu=9041) ACCURATE CREATININE CLEARANCE IN PREDICTING GLOMERULAR FILTRATION RATE. ESTIMATED GFR IS NOT APPLICABLE FOR DIALYSIS PATIENTS. CBC W/PLT COUNT & AUTO [id number] 13:24:00 Test Item Value Reference Range Comments WHITE BLOOD CELL COUNT (BEAKER) (test fxvi=631) 7.4 K/ L 3.5-10.5 RED BLOOD CELL COUNT (BEAKER) (test xnrv=858) 4.41 M/ L 3.93-5.22 HEMOGLOBIN (BEAKER) (test pmjo=464) 13.0 GM/DL 11.2-15.7 HEMATOCRIT (BEAKER) (test pnsx=112) 39.0 % 34.1-44.9 MEAN CORPUSCULAR VOLUME (BEAKER) (test rqpq=516) 88.4 fL 79.4-94.8 MEAN CORPUSCULAR HEMOGLOBIN (BEAKER) (test 29.5 pg 25.6-32.2 xgvo=982) MEAN CORPUSCULAR HEMOGLOBIN CONC (BEAKER) (test 33.3 GM/DL 32.2-35.5 ouwe=309) RED CELL DISTRIBUTION WIDTH (BEAKER) (test 12.9 % 11.7-14.4 ghem=337) PLATELET COUNT (BEAKER) (test olmb=663) 280 K/CU MM 150-450 MEAN PLATELET VOLUME (BEAKER) (test wjuj=877) 9.7 fL 9.4-12.3 NUCLEATED RED BLOOD CELLS (BEAKER) (test 0 /100 WBC 0-0 jmaa=067) NEUTROPHILS RELATIVE PERCENT (BEAKER) (test 66 % fwuq=107) LYMPHOCYTES RELATIVE PERCENT (BEAKER) (test 28 % juim=502) MONOCYTES RELATIVE PERCENT (BEAKER) (test 6 % weuq=400) EOSINOPHILS RELATIVE PERCENT (BEAKER) (test 0 % slbs=464) BASOPHILS RELATIVE PERCENT (BEAKER) (test 0 % fxip=788) NEUTROPHILS ABSOLUTE COUNT (BEAKER) (test 4.89 K/ L 1.56-6.13 gnjp=908) LYMPHOCYTES ABSOLUTE COUNT (BEAKER) (test 2.03 K/ L 1.18-3.74 qbyw=249) MONOCYTES ABSOLUTE COUNT (BEAKER) (test 0.41 K/ L 0.24-0.36 jeve=873) EOSINOPHILS ABSOLUTE COUNT (BEAKER) (test 0.00 K/ L 0.04-0.36 ymvg=072) BASOPHILS ABSOLUTE COUNT (BEAKER) (test 0.03 K/ L 0.01-0.08 kwtv=260) IMMATURE GRANULOCYTES-RELATIVE PERCENT (BEAKER) 0 % 0-1 (test kifb=1093)
[2019-05-25] MEDS ORDERED: ONDANSETRON 4 MG/2 ML VIAL ONE (02:19)
[2019-05-25] MEDS ORDERED: MORPHINE 4 MG/ML SYR ONE (02:19)
[2019-05-25 02:26] LABS: Protime INR 1.16
[2019-05-25 02:28] LABS: Absolute Lymphocytes (CBC) 0.8 K/uL (0.7-4.9); Basophils % 0.3 % (0-1.3); Hematocrit 32.3 % (36.0-45.0); Lymphocytes % 7.4 % (15.3-44.8); MPV 7.8 fL (7.6-11.3); RBC Red Blood Cell Count 3.67 M/uL (3.86-4.86)
[2019-05-25 02:42] LABS: Albumin 2.8 g/dL (3.4-5.0); Bilirubin Total 0.6 mg/dL (0.2-1.0); Magnesium 2.4 mg/dL (1.8-2.4); Potassium 4.6 mmol/L (3.5-5.1); Protein, Total 6.9 g/dL (6.4-8.2); Troponin (Emerg Dept Use Only) 0.02 ng/mL (0.0-0.045)
[2019-05-25 03:31] LABS: Blood Morphology Comment NOT SEEN (NOT SEEN); Platelet Estimate ADEQ
--- NOTE | 2019-05-25 05:00 | ER ---
Nurse's Notes [facility] Name: Sharon Nunez Age: 58 yrs Sex: Female : 1960 Arrival Date: 05/25/2019 Time: 00:34 Bed 16 Private MD: Diagnosis: Post op ileus Presentation: 05/25 00:30 Presenting complaint: EMS states: Pt had a triple A repair 1 week ago at [facility], was jb4 instructed to watch for nausea and vomiting, pt had nausea and vomiting at the time of discharge today. reports it was not that bad and wanted to go home so she didn't mention it. Pt complaining of 10/10 abdominal pain with worsening nausea and vomiting. 00:30 Transition of care: patient was not received from another setting of care. Onset of jb4 symptoms was May 25, 2019. Risk Assessment: Do you want to hurt yourself or someone else? Patient reports no desire to harm self or others. Initial Sepsis Screen: Does the patient meet any 2 criteria? No. Patient's initial sepsis screen is negative. Does the patient have a suspected source of infection? Yes: Acute abdominal pain. Care prior to arrival: None. 00:30 Method Of Arrival: EMS: [facility] jb4 00:30 Acuity: GER 2 jb4 Historical: - Allergies: 00:30 Adhesives; jb4 - Home Meds: 00:30 zolpidem 10 mg Oral tab once daily [Active]; tramadol 50 mg Oral tab 3 TIMES A DAY jb4 [Active]; Pristiq 100 mg Oral Tb24 1 tab once daily [Active]; Seroquel 300 mg Oral tab 1 tab once daily [Active]; ropinirole 1 mg Oral tab twice a day [Active]; Plavix 75 mg Oral tab 1 tab once daily [Active]; Lipitor 40 mg Oral tab once daily [Active]; clonazepam 2 mg Oral tab 3 times per day [Active]; aspirin 81 mg Oral chew 1 tab once daily [Active]; Adderall XR 30 mg Oral cp24 twice a day [Active]; - PMHx: 00:30 Abdominal aneurysm; ADD/ADHD; Hypertension; Myocardial infarction; jb4 - PSHx: 00:30 Heart stents; triple A repair; jb4 - Immunization history:: Adult Immunizations up to date. - Social history:: Smoking status: Patient/guardian denies using tobacco. - Ebola Screening: : No symptoms or risks identified at this time. Screenin:55 Abuse screen: Denies threats or abuse. Denies injuries from another. Nutritional aa1 screening: No deficits noted. Tuberculosis screening: No symptoms or risk factors identified. Fall Risk None identified. Assessment: 00:55 General: Appears in no apparent distress. comfortable, Behavior is calm, cooperative, aa1 appropriate for age. Pain: Complains of pain in abdomen. Neuro: Level of Consciousness is awake, alert, obeys commands, Oriented to person, place, time, situation, Moves all extremities. Full function. Cardiovascular: Denies chest pain, palpitations, shortness of breath, Heart tones S1 S2 present Rhythm is regular. Respiratory: Airway is patent Respiratory effort is even, unlabored, Respiratory pattern is regular, symmetrical. GI: Abdomen is non-distended, midline incision noted with tariq intact s/p AAA repair Reports indigestion, nausea, vomiting. : No signs and/or symptoms were reported regarding the genitourinary system. EENT: No signs and/or symptoms were reported regarding the EENT system. Derm: Skin is intact, is healthy with good turgor, Skin is pink, warm \T\ dry. Musculoskeletal: Circulation, motion, and sensation intact. Capillary refill < 3 seconds. 01:33 Reassessment: Patient appears in no apparent distress at this time. Patient and/or aa1 family updated on plan of care and expected duration. Pain level reassessed. Patient is alert, oriented x 3, equal unlabored respirations, skin warm/dry/pink. Awaiting provider assessment. 02:35 Reassessment: Patient appears in no apparent distress at this time. Patient and/or aa1 family updated on plan of care and expected duration. Pain level reassessed. Patient is alert, oriented x 3, equal unlabored respirations, skin warm/dry/pink. Pt awaiting CT scan and lab results. 03:05 Reassessment: Pt reports an increase in pain and a burning sensation in the back of her jb4 mouth, primary nurse notified. 03:42 Reassessment: Patient appears in no apparent distress at this time. Patient and/or aa1 family updated on plan of care and expected duration. Pain level reassessed. Patient is alert, oriented x 3, equal unlabored respirations, skin warm/dry/pink. Pt back from CT at this time. 04:04 Reassessment: Patient appears in no apparent distress at this time. Patient and/or jb4 family updated on plan of care and expected duration. Pain level reassessed. Pt is resting in bed with eyes closed, no s/s of pain or distress noted at this time. 04:23 Reassessment: Pt reports an increase in abdominal pain, burning in her throat, and jb4 nausea, provider notified. 05:30 Reassessment: Patient appears in no apparent distress at this time. Patient and/or jb4 family updated on plan of care and expected duration. Pain level reassessed. Pt is resting comfortably in bed with eyes closed, respirations are even an unlabored. No s/s of pain noted after Toradol administration. 06:30 Reassessment: Patient appears in no apparent distress at this time. Patient and/or jb4 family updated on plan of care and expected duration. Pain level reassessed. Patient is alert, oriented x 3, equal unlabored respirations, skin warm/dry/pink. Pt transferred to [facility] via EMS. IV patent, dry and intact. Vital Signs: 00:30 BP 119 / 81; Pulse 87; Resp 20; Temp 98.8(O); Pulse Ox 97% on R/A; Weight 78.93 kg; jb4 Height 5 ft. 9 in. (175.26 cm); Pain 10/10; 01:30 BP 118 / 77; Pulse 95; Resp 18; Pulse Ox 97% on R/A; aa1 02:30 BP 122 / 80; Pulse 95; Resp 18; Pulse Ox 95% on R/A; Pain 7/10; aa1 03:42 BP 120 / 57; Pulse 101; Resp 18; Pulse Ox 97% on R/A; aa1 04:24 BP 112 / 85; Pulse 105; Resp 20; Pulse Ox 95% on R/A; jb4 05:42 BP 120 / 74; Pulse 93; Resp 16; Temp 98.6; Pulse Ox 97% on R/A; ak1 06:30 BP 129 / 84; Pulse 91; Resp 18; Pulse Ox 97% on R/A; jb4 00:30 Body Mass Index 25.70 (78.93 kg, 175.26 cm) jb4 ED Course: 00:30 Arm band placed on left wrist. jb4 00:34 Patient arrived in ED. ds1 00:44 Triage completed. jb4 00:55 Patient has correct armband on for positive identification. Bed in low position. Call aa1 light in reach. Pulse ox on. NIBP on. Warm blanket given. 01:33 Fabiana Villalobos RN is Primary Nurse. aa1 01:38 Joao Regalado MD is Attending Physician. ps1 01:50 EKG done, by ED staff, reviewed by Joao Regalado MD. aa1 02:00 Missed attempt(s): 22 gauge in right antecubital area. Bleeding controlled, band aid aa1 applied, catheter tip intact. 02:07 Initial lab(s) drawn, by me, sent to lab. Inserted saline lock: 22 gauge in left aa1 antecubital area, using aseptic technique. Blood collected. 03:47 Report given to Jerry Breen RN. aa1 03:53 Angio Aorta For Dissection In Process Unspecified. EDMS 04:04 Chilo Breen RN is Primary Nurse. jb4 06:30 No provider procedures requiring assistance completed. Patient transferred, IV remains jb4 in place. Administered Medications: 02:30 Drug: morphine 4 mg Route: IVP; Site: left antecubital; aa1 03:00 Follow up: Response: No adverse reaction; Pain is decreased; RASS: Alert and Calm (0) jb4 02:30 Drug: Zofran 4 mg Route: IVP; Site: left antecubital; aa1 03:00 Follow up: Response: No adverse reaction; Nausea is decreased jb4 05:12 Drug: TORadol - Ketorolac 15 mg Route: IVP; Site: left antecubital; jb4 05:30 Follow up: Response: No adverse reaction; Pain is decreased jb4 05:13 Drug: Reglan 10 mg Route: IVP; Site: left antecubital; jb4 05:30 Follow up: Response: No adverse reaction; Nausea is decreased jb4 Outcome: 04:59 ER care complete, transfer ordered by . ps1 05:51 Transferred by ground EMS to [facility], Transfer form completed. ak1 X-rays sent w/ patient. Note: report called to Jason Tobin RN for 12th tower room 1238. 05:51 Instructed on the need for transfer. 06:30 Condition: stable jb4 06:40 Patient left the ED. jb4 Signatures: Dispatcher [employer] EDMS Fabiana Villalobos RN RN aa1 Patricia Galvan1 Karey Canseco RN RN ak1 Chilo Breen RN RN jb4 Joao Regalado MD MD ps1
--- NOTE | 2019-05-25 05:00 | EDPHYS ---
Physician Documentation [facility] Name: Sharon Nunez Age: 58 yrs Sex: Female : 1960 Arrival Date: 05/25/2019 Time: 00:34 Bed 16 Private MD: ED Physician Joao Regalado HPI: 05/25 01:38 This 58 yrs old Female presents to ER via EMS with complaints of ps1 Nausea/Vomiting. 01:38 post AAA repair. NV. ps1 Historical: - Allergies: 00:30 Adhesives; jb4 - Home Meds: 00:30 zolpidem 10 mg Oral tab once daily [Active]; tramadol 50 mg Oral tab 3 TIMES A DAY jb4 [Active]; Pristiq 100 mg Oral Tb24 1 tab once daily [Active]; Seroquel 300 mg Oral tab 1 tab once daily [Active]; ropinirole 1 mg Oral tab twice a day [Active]; Plavix 75 mg Oral tab 1 tab once daily [Active]; Lipitor 40 mg Oral tab once daily [Active]; clonazepam 2 mg Oral tab 3 times per day [Active]; aspirin 81 mg Oral chew 1 tab once daily [Active]; Adderall XR 30 mg Oral cp24 twice a day [Active]; - PMHx: 00:30 Abdominal aneurysm; ADD/ADHD; Hypertension; Myocardial infarction; jb4 - PSHx: 00:30 Heart stents; triple A repair; jb4 - Immunization history:: Adult Immunizations up to date. - Social history:: Smoking status: Patient/guardian denies using tobacco. - Ebola Screening: : No symptoms or risks identified at this time. Vital Signs: 00:30 BP 119 / 81; Pulse 87; Resp 20; Temp 98.8(O); Pulse Ox 97% on R/A; Weight 78.93 kg; jb4 Height 5 ft. 9 in. (175.26 cm); Pain 10/10; 01:30 BP 118 / 77; Pulse 95; Resp 18; Pulse Ox 97% on R/A; aa1 02:30 BP 122 / 80; Pulse 95; Resp 18; Pulse Ox 95% on R/A; Pain 7/10; aa1 03:42 BP 120 / 57; Pulse 101; Resp 18; Pulse Ox 97% on R/A; aa1 04:24 BP 112 / 85; Pulse 105; Resp 20; Pulse Ox 95% on R/A; jb4 05:42 BP 120 / 74; Pulse 93; Resp 16; Temp 98.6; Pulse Ox 97% on R/A; ak1 06:30 BP 129 / 84; Pulse 91; Resp 18; Pulse Ox 97% on R/A; jb4 00:30 Body Mass Index 25.70 (78.93 kg, 175.26 cm) jb4 MDM: 01:49 Patient medically screened. ps1 0806 01:39 Order name: CBC with Diff; Complete Time: 04:12 ps1 05/25 01:39 Order name: Magnesium; Complete Time: 03:24 ps1 05/25 01:39 Order name: NT PRO-BNP; Complete Time: 03:24 ps1 05/25 01:39 Order name: PT-INR; Complete Time: 03:24 ps1 05/25 01:39 Order name: Troponin (emerg Dept Use Only); Complete Time: 03:24 ps1 05/25 01:39 Order name: CMP; Complete Time: 03:24 ps1 05/25 01:39 Order name: EKG; Complete Time: 01:41 ps1 05/25 02:39 Order name: Manual Differential; Complete Time: 04:12 EDMS 05/25 03:01 Order name: Angio Aorta For Dissection EDMS 08 01:39 Order name: Cardiac monitoring; Complete Time: 02:07 ps1 05/25 01:39 Order name: EKG - Nurse/Tech; Complete Time: 02:07 ps1 05/25 01:39 Order name: IV Saline Lock; Complete Time: 02:07 ps1 05/25 01:39 Order name: Labs collected and sent; Complete Time: 02:07 ps1 05/25 01:39 Order name: O2 Per Protocol; Complete Time: 02:31 ps1 08 01:39 Order name: O2 Sat Monitoring; Complete Time: 02:31 ps1 Administered Medications: 02:30 Drug: morphine 4 mg Route: IVP; Site: left antecubital; aa1 03:00 Follow up: Response: No adverse reaction; Pain is decreased; RASS: Alert and Calm (0) jb4 02:30 Drug: Zofran 4 mg Route: IVP; Site: left antecubital; aa1 03:00 Follow up: Response: No adverse reaction; Nausea is decreased jb4 05:12 Drug: TORadol - Ketorolac 15 mg Route: IVP; Site: left antecubital; jb4 05:30 Follow up: Response: No adverse reaction; Pain is decreased jb4 05:13 Drug: Reglan 10 mg Route: IVP; Site: left antecubital; jb4 05:30 Follow up: Response: No adverse reaction; Nausea is decreased jb4 Disposition: 05/25/19 04:[address] [facility]. Diagnosis is Post op ileus. - Reason for transfer: Higher level of care. - Accepting physician is johnny. - Condition is Stable. - Problem is new. - Symptoms are unchanged. Signatures: Dispatcher [employer] EDMS Fabiana Villalobos RN RN aa1 Chilo Breen RN RN jb4 Joao Regalado MD MD ps1 Corrections: (The following items were deleted from the chart) 03:01 01:49 Abdomen Angio+CT.RAD.BRZ ordered. [facility] EDNJ 06:40 04:59 05/25/2019 04:[address] [facility]. Diagnosis is jb4 Post op ileus. Reason for transfer: Higher level of care. Accepting physician is johnny. Condition is Stable. Problem is new. Symptoms are unchanged. ps1
[2019-05-25] MEDS ORDERED: KETOROLAC 30 MG/ML INJ ONE (05:09)
[2019-05-25] MEDS ORDERED: METOCLOPRAMIDE 10 MG/2mL INJ ONE (05:09)
--- NOTE | 2019-05-25 07:34 | EKG ---
Test Date: 2019-05-25 Test Time: 01:50:49 Newcomer Hostess: EVONNE MEASUREMENT RESULTS: Intervals: Rate: 94 CA: 128 QRSD: 74 QT: 394 QTc: 492 [place]: P: 46 CA: 128 QRS: 25 T: 17 INTERPRETIVE STATEMENTS: Normal sinus rhythm T wave abnormality, consider anterior ischemia Prolonged QT Abnormal ECG Compared to ECG 04/26/2019 14:13:07 T-wave abnormality now present Possible ischemia now present Prolonged QT interval now present Electronically Signed On 05-25-19 07:33:34 CDT by Bill Torres
--- NOTE | 2019-05-25 10:13 | RAD REPORT ---
EXAM DESCRIPTION: CT - Angio Aorta For Dissection - 05/25/2019 6:12 am CLINICAL HISTORY: Recent open AAA repair. Vomiting / Pain COMPARISON: None. TECHNIQUE: CT CHEST ABDOMEN PELVIS ANGIOGRAPHY WITH IV CONTRAST on 05/25/2019 1:47 AM CDT. MIPS recons tructions were generated. This exam was performed according to our departmental dose-optimization program, which includes autom ated exposure control, adjustment of the mA and/or kV according to patient size and/or use of iterati ve reconstruction technique. FINDINGS: Vascular: The ascending thoracic aorta is normal in caliber. The mid descending thoracic a kristyn is mildly dilated at 4.1 cm. Pulmonary arteries are adequately opacified without acute or chroni c filling defects. Patient is status post open abdominal aortic aneurysm repair. There is mild periao rtic stranding. Pelvic arteries are patent without aneurysm or occlusion. The heart is normal in size. There is no pericardial effusion. Intrathoracic lymph nodes are not enla rged. There is no pleural effusion, pleural thickening or pneumothorax. Central airways are patent. There a re minimal patchy opacities in the right upper lobe. Abdomen: There is perihepatic and perisplenic fluid. There is no biliary dilatation. Cholecystectomy was performed. The pancreas and spleen are normal in appearance. Adrenal glands are normal. Kidneys a re mildly atrophic. There is no free air. There is no retroperitoneal adenopathy. Pelvis: There are several dilated small bowel loops in the left abdomen. There is air in the urinary bladder. There is no free fluid. Uterus is normal in size. Appendix is not clearly seen. Skeleton: There are no acute osseous findings. No suspicious bony lesions. IMPRESSION: Status post open AAA repair with no clear vascular complications. Probable small bowel ileus with mild ascites. Difficult to exclude mild right upper lobe pneumonia. Electronically signed by: Devang Lemus MD 05/25/2019 4:11 AM CDT Due to temporary technical issues with the PACS/Fluency reporting system, reports are being signed by the in house radiologist as a courtesy to ensure prompt reporting. The interpreting radiologist is f ully responsible for the content of the report.
== END 2019-05-25 06:40 | disposition short-term general hospital (02) ==
LOC: ER 00:29
DX: K91.30 Postprocedural intestinal obstruction, unspecified as to partial versus complete (principal); Y83.8 Other surgical procedures as the cause of abnormal reaction of the patient, or of later complication, without mention of misadventure at the time of the procedure; I10 Essential (primary) hypertension; I25.2 Old myocardial infarction; F90.9 Attention-deficit hyperactivity disorder, unspecified type; Z95.818 Presence of other cardiac implants and grafts; Z79.01 Long term (current) use of anticoagulants; Z79.82 Long term (current) use of aspirin
CPT/HCPCS: 93005; 85025; 36415; 83735; 85610; 84484; 80053; 83880; 71275; 74175; 96375; 96374; 99285; Q9967; J2765; J2405

== ENCOUNTER 2025-08-04 16:08 | Observation (INO) | payer OTHER ==
[2025-08-04] MEDS ORDERED: IPRATROPIUM BROM 0.5MG/2.5ML ONE (16:53)
[2025-08-04] MEDS ORDERED: LEVALBUTEROL 1.25 MG/3 ML NEB ONE (16:53)
[2025-08-04] MEDS ORDERED: HYDROCODONE/APAP 7.5/325 MG TAB ONE (16:54)
[2025-08-04] MEDS ORDERED: NA CHLORIDE 0.9% 500 ML ONE ×2 (16:54→21:27)
[2025-08-04 17:14] LABS: Absolute Lymphocytes (CBC) 1.7 K/uL (0.7-4.9); Hematocrit 33.5 % (36.0-45.0); Hemoglobin 11.4 g/dL (12.0-15.0); MCH 31.2 pg (27.0-35.0); MCHC 34.2 g/dL (32.0-36.0); MCV 91.3 fL (80-100); MPV 7.2 fL (7.6-11.3); Nucleated RBC Absolute Count 0.0 (0-0); Nucleated Red Blood Cells % 0.0 % (0-0); RBC Red Blood Cell Count 3.66 M/uL (3.86-4.86); White Blood Count 5.10 thou/uL (4.3-10.9)
[2025-08-04 17:20] LABS: PT Prothrombin Time 13.7 SECONDS (10-13.0); Protime INR 1.22
--- NOTE | 2025-08-04 17:32 | RAD REPORT ---
EXAMINATION: ONE VIEW CHEST XR CLINICAL INDICATION: CHEST PAIN TECHNIQUE: Frontal chest projection is submitted. Examination is limited by patient positioning and t echnique. COMPARISON: 11/02/2019 FINDINGS: The lungs are well inflated and clear. The heart is normal in size. No displaced fractures identified . Thoracic aortic stenting. IMPRESSION: No acute intrathoracic abnormalities.
[2025-08-04 17:34] LABS: Albumin 3.0 g/dL (3.4-5.0); Albumin/Globulin Ratio 0.8 (1.1-1.8); Alkaline Phosphatase 106 U/L (45-117); Anion Gap 7.7 mEq/L (5.0-15.0); BUN Blood Urea Nitrogen 4 mg/dL (7-18); Globulin 4.0 g/dL (2.3-3.5); Glucose Level 92 mg/dL (74-106); Magnesium 2.2 mg/dL (1.6-2.4); NT PRO-BNP 233 pg/mL (<125); Potassium 3.7 mEq/L (3.5-5.1); Troponin High Sensitivity 4.0 pg/mL (<58.9)
[2025-08-04 17:35] LABS: ALT/SGPT < 14 U/L (13-56); AST/SGOT < 10 U/L (15-37); Bilirubin Indirect, Calculated 0.2 mg/dL (0.2-0.8)
[2025-08-04 18:12] LABS: Influenza A Ag Negative; Influenza B Ag Negative; SARS-CoV-2 Antigen Rapid Res Negative (Negative)
[2025-08-04] MEDS ORDERED: KETOROLAC 30 MG/ML INJ ONE (18:14)
--- NOTE | 2025-08-04 20:04 | ER ---
Nurse's Notes [facility] Name: Sharon Nunez Age: 64 yrs Sex: Female : 1960 Arrival Date: 08/04/2025 Time: 16:08 Bed 4 Private MD: Diagnosis: Chest pain, unspecified;Dorsalgia, unspecified;Shortness of breath Presentation: 08/04 16:14 Chief complaint: Patient states: reports Left upper back pain w/ SOB, Cancer in L Lung. kb4 Coronavirus screen: At this time, unable to obtain information related to travel outside the [place] Ebola Screen: No symptoms or risks identified at this time. Initial Sepsis Screen: Does the patient meet any 2 criteria? No. Patient's initial sepsis screen is negative. Does the patient have a suspected source of infection? No. Patient's initial sepsis screen is negative. Risk Assessment: Do you want to hurt yourself or someone else? Patient reports no desire to harm self or others. Onset of symptoms was August 04, 2025. 16:14 Method Of Arrival: Ambulatory [facility] 16:14 Acuity: GER 2 kb4 Triage Assessment: 16:21 General: Appears distressed, comfortable, Behavior is calm, cooperative. kb4 Historical: - Allergies: 16:18 Adhesives; kb4 - PMHx: 16:18 Abdominal aneurysm; Hypertension; Myocardial infarction; kb4 - Immunization history:: Adult Immunizations up to date. - Infectious Disease History:: Denies. - Social history:: Smoking status: Patient reports the use of cigarette tobacco products, 3cigs/day. Screenin:55 [facility] ED Fall Risk Assessment (Adult) History of falling in the last 3 months, jp5 including since admission No falls in past 3 months (0 pts) Confusion or Disorientation No (0 pts) Intoxicated or Sedated No (0 pts) Impaired Gait No (0 pts) Mobility Assist Device Used No (0 pt) Altered Elimination No (0 pt) Score/Fall Risk Level 0 - 2 = Low Risk Oriented to surroundings, Maintained a safe environment, Educated pt \T\ family on fall prevention, incl call for assistance when getting out of bed, Assessed \T\ reinforced patient's understanding of fall precautions, Provided non-skid footwear, Hourly rounding (assess needs \T\ fall precautionary measures) done, Used ambulatory aids as needed (educated on \T\ assisted with), Used gait belt as appropriate. Abuse screen: Denies threats or abuse. Denies injuries from another. Nutritional screening: No deficits noted. Tuberculosis screening: No symptoms or risk factors identified. Assessment: 16:55 Pain: Complains of pain in posterior chest. Cardiovascular: Rhythm is regular. jp5 Respiratory: Airway is patent Respiratory effort is even, unlabored, Breath sounds are diminished bilaterally. 19:48 Reassessment: Patient appears in no apparent distress at this time. Patient and/or jb4 family updated on plan of care and expected duration. Pain level reassessed. Patient is alert, oriented x 3, equal unlabored respirations, skin warm/dry/pink. 20:45 Reassessment: Patient appears in no apparent distress at this time. Patient and/or jb4 family updated on plan of care and expected duration. Pain level reassessed. Patient is alert, oriented x 3, equal unlabored respirations, skin warm/dry/pink. 21:20 Reassessment: Patient appears in no apparent distress at this time. Patient and/or jb4 family updated on plan of care and expected duration. Pain level reassessed. Patient is alert, oriented x 3, equal unlabored respirations, skin warm/dry/pink. Vital Signs: 16:14 BP 154 / 76; Pulse 76; Resp 22; Temp 98.8; Pulse Ox 97% on R/A; Pain 8/10; kb4 17:00 BP 124 / 76; Pulse 68; Resp 18; Pulse Ox 96% on R/A; jp5 18:00 BP 129 / 69; Pulse 69; Resp 18; Pulse Ox 94% on R/A; jp5 18:30 BP 121 / 73; Pulse 70; Resp 16 S; Pulse Ox 95% on R/A; ar8 18:54 Pain 4/10; ar8 18:54 Pain 4/10; ar8 19:57 BP 143 / 92; Pulse 69; Resp 18; Pulse Ox 100% on R/A; jb4 21:00 BP 151 / 62; Pulse 70; Resp 16; Pulse Ox 98% on R/A; jb4 16:14 Pain Scale: Adult kb4 18:54 Pain Scale: Adult ar8 18:54 Pain Scale: Adult ar8 ED Course: 16:13 Patient arrived in ED. im 16:15 Page, Gigi, PA-C is PHCP. cp 16:15 Gigi Sanchez MD is Attending Physician. cp 16:18 Triage completed. kb4 16:55 Patient has correct armband on for positive identification. Bed in low position. Call jp5 light in reach. Side rails up X 1. Provided Education on: call light use. 17:00 Inserted saline lock: 20 gauge in left antecubital area, using aseptic technique. Blood jp5 collected. Flushed with 10 mL NS. 17:02 Dino Gonzalez, RN is Primary Nurse. ar8 17:03 Initial lab(s) drawn, by me, sent to lab. jp5 17:06 Basic Metabolic Panel Sent. jp5 17:06 CBC with Diff Sent. jp5 17:06 LFT's Sent. jp5 17:06 Magnesium Sent. jp5 17:06 NT PRO-BNP Sent. jp5 17:06 PT-INR Sent. jp5 17:06 Troponin HS Sent. jp5 17:07 COVID-19 Ag + Flu A+B Ag Sent. jp5 17:22 XRAY Chest (1 view) In Process Unspecified. EDMS 17:30 UA Rfx Casey Cult if indicated Sent. jp5 17:30 COVID-19 Ag + Flu A+B Ag Sent. jp5 17:41 No provider procedures requiring assistance completed. jp5 20:03 Lito Gonzales MD is Hospitalizing Provider. cp 22:35 Patient admitted, IV remains in place. jb4 Administered Medications: 16:55 Drug: Hydrocodone-Acetaminophen PO (7.5 mg-325 mg) 1 tabs PO once; RASS on ADMIN: jp5 Combtv4, Very Agttd3, Agttd2, Rstlss1, AlertClm0, Drwsy-1, Lt Sdtn-2, Mod Sdtn-3, Dp Sdtn-4, UnArsble-5 Route: PO; 18:54 Follow up: Pain 4/10 Adult; Response: No adverse reaction; Pain is decreased ar8 17:00 Drug: Levalbuterol Inhalation 1.25 mg Inhalation once Route: Inhalation; jp5 17:30 Follow up: Response: No adverse reaction jp5 17:30 Follow up: Response: No adverse reaction jp5 17:00 Drug: Ipratropium Inhalation Aerosol 0.5 mg Inhalation once Route: Inhalation; jp5 17:04 Drug: NS 0.9% IV 500 ml 500 ml IV at 1 bolus once; to be given as a bolus over 60 jp5 minutes Volume: 500 ml; Route: IV; Rate: 1 bolus; Site: left antecubital; 18:15 Drug: Ketorolac IVP 15 mg IVP once Route: IVP; Site: left antecubital; jp5 18:54 Follow up: Pain /10 Adult; Response: No adverse reaction; Pain is decreased ar8 20:50 Drug: LORazepam PO 1 mg PO once Route: PO; mf3 21:31 Drug: NS 0.9% IV 500 ml 500 ml IV at 1 bolus once; to be given as a bolus over 60 jb4 minutes Volume: 500 ml; Route: IV; Rate: 1 bolus; Site: left antecubital; 21:32 Drug: morphine IVP or IV 4 mg IVP once over 4 mins Route: IVP; Infused Over: 4 mins; jb4 Site: left antecubital; Medication: 17:41 VIS not applicable for this client. jp5 Outcome: 20:03 Decision to Hospitalize by Provider. cp 22:34 Admitted to Tele accompanied by nurse, via wheelchair, room 413, with chart, jb4 22:34 Condition: stable 22:34 Discharge instructions given to patient, Instructed on the need for admit, Demonstrated understanding of instructions, 22:36 Patient left the ED. jb4 Signatures: Dispatcher [employer] EDMS Gigi Armijo, LEÓN PA-C cp Chilo Breen RN RN jb4 Amelie Talley Jailene, RN RN jp5 Sangita Ruth RN RN kb4 Dino Gonzalez RN RN ar8 Vivian Briones RN RN mf3 Corrections: (The following items were deleted from the chart) 16:21 16:18 PMHx: ADD/ADHD; kb4 kb4
--- NOTE | 2025-08-04 20:04 | EDPHYS ---
Physician Documentation [facility] Name: Sharon Nunez Age: 64 yrs Sex: Female : 1960 Arrival Date: 08/04/2025 Time: 16:08 Bed 4 Private MD: ED Physician Gigi Sanchez HPI: 08/04 16:50 This 64 yrs old Female presents to ER via Ambulatory with complaints of Shortness Of cp Breath, Back Pain. 16:50 Patient is a 64-year-old female with past medical history significant for hypertension. cp Patient reports she has had an MD in the past and ended thoracic and abdominal aortic aneurysm with repair. Patient presents to the emergency department complaining of left upper chest pain radiating to her back and shortness of breath over the last several days. She was recently diagnosed with pulmonary cancer and reports she saw her oncologist earlier today who ordered a CT of her chest. She has not heard the results of the CT chest and presented today complaining of pain and shortness of breath. Historical: - Allergies: 16:18 Adhesives; kb4 - PMHx: 16:18 Abdominal aneurysm; Hypertension; Myocardial infarction; kb4 - Immunization history:: Adult Immunizations up to date. - Infectious Disease History:: Denies. - Social history:: Smoking status: Patient reports the use of cigarette tobacco products, 3cigs/day. ROS: 16:55 Constitutional: Negative for body aches, chills, fever, poor PO intake, cp 16:55 Eyes: Negative for injury, pain, redness, and discharge, cp 16:55 ENT: Negative for drainage from ear(s), ear pain, sore throat, difficulty swallowing, difficulty handling secretions, 16:55 Cardiovascular: Positive for chest pain, Negative for edema, palpitations, 16:55 Respiratory: Positive for shortness of breath, Negative for cough, wheezing, 16:55 Abdomen/GI: Negative for abdominal pain, nausea, vomiting, and diarrhea, 16:55 Neuro: Negative for altered mental status, dizziness, headache, numbness, syncope, near syncope, weakness, 16:55 All other systems are negative, Exam: 17:00 Constitutional: The patient appears in no acute distress, alert, awake, cp non-diaphoretic, non-toxic, well developed, well nourished, uncomfortable, 17:00 Head/Face: Normocephalic, atraumatic. cp 17:00 Eyes: Periorbital structures: appear normal, Conjunctiva: normal, no exudate, no injection, Sclera: no appreciated abnormality, Lids and lashes: appear normal, bilaterally, 17:00 ENT: External ear(s): are unremarkable, Nose: is normal, Mouth: is normal, Posterior pharynx: Airway: no evidence of obstruction, patent, erythema, is not appreciated, exudate, is not appreciated, 17:00 Neck: ROM/movement: is normal, is supple, without pain, no range of motions limitations, 17:00 Chest/axilla: Inspection: normal, Palpation: crepitus, is not appreciated, tenderness, that is mild, of the anterior aspect of left upper chest, 17:00 Cardiovascular: Rate: normal, Rhythm: regular, Edema: is not appreciated, JVD: is not appreciated, 17:00 Respiratory: the patient does not display signs of respiratory distress, Respirations: labored breathing, is not present, shallow respirations, that is mild, Breath sounds: decreased breath sounds, that are mild, throughout, stridor, is not appreciated, wheezing: is not appreciated, 17:00 Abdomen/GI: Inspection: abdomen appears normal, Bowel sounds: active, all quadrants, Palpation: abdomen is soft and non-tender, in all quadrants, 17:00 Back: pain, that is moderate, of the left scapular area and left subscapular area, ROM is painful, with all movement, 17:00 Skin: cellulitis, is not appreciated, no rash present. 17:00 Neuro: Orientation: to person, place \T\ time. Mentation: is normal, Cerebellar function: is grossly normal, Motor: moves all fours, strength is normal, Sensation: is normal, 17:35 ECG was reviewed by the Attending Physician. cp Vital Signs: 16:14 BP 154 / 76; Pulse 76; Resp 22; Temp 98.8; Pulse Ox 97% on R/A; Pain 8/10; kb4 17:00 BP 124 / 76; Pulse 68; Resp 18; Pulse Ox 96% on R/A; jp5 18:00 BP 129 / 69; Pulse 69; Resp 18; Pulse Ox 94% on R/A; jp5 18:30 BP 121 / 73; Pulse 70; Resp 16 S; Pulse Ox 95% on R/A; ar8 18:54 Pain 4/10; ar8 18:54 Pain 4/10; ar8 19:57 BP 143 / 92; Pulse 69; Resp 18; Pulse Ox 100% on R/A; jb4 21:00 BP 151 / 62; Pulse 70; Resp 16; Pulse Ox 98% on R/A; jb4 16:14 Pain Scale: Adult kb4 18:54 Pain Scale: Adult ar8 18:54 Pain Scale: Adult ar8 MDM: 16:22 Medical Screening Exam initiated cp 17:00 Differential diagnosis: CHF exacerbation, Chronic Obstructive Pulmonary Disease cp Myocardial Infarction pneumonia, Pneumothorax pulmonary edema, Pulmonary Embolism Sepsis Unstable Angina. 20:05 Data reviewed: vital signs, nurses notes, lab test result(s), EKG, radiologic studies, cp plain films. 20:05 Antibiotic administration: Not indicated, the patient does not have an appreciated cp infiltrate. The patient's [place] Deep Vein Thrombosis Score was calculated as follows: Suspected DVT (3 Pts) Malignancy. Management of patient was discussed with the following: Hospitalist: DR Gonzales who will admit after discussion. I considered the following discharge prescriptions or medication management in the emergency department Medications were administered in the Emergency Department. See MAR. Independent interpretation of the following test(s) in the Emergency Department EKG: See my EKG interpretation above. Care significantly affected by the following chronic conditions: Hypertension, Cancer. Counseling: I had a detailed discussion with the patient and/or guardian regarding the historical points, exam findings, and any diagnostic results supporting the discharge/admit diagnosis, lab results, radiology results, the need for further work-up and treatment in the hospital. 20:45 ED course: consult with DR Murguia concerning patient's hx of thoracic and abdominal cp aneurysms with repair. he will consult and patient can be admitted here. 08/04 16:45 Order name: Basic Metabolic Panel; Complete Time: 17:52 cp 08/04 17:53 Interpretation: Normal except: BUN 4; GFR 82. cp 08/04 16:45 Order name: CBC with Diff; Complete Time: 17:52 cp 08/04 17:53 Interpretation: Normal except: RBC 3.66; HGB 11.4; HCT 33.5; MPV 7.2. cp 08/04 16:45 Order name: LFT's; Complete Time: 17:52 cp 08/04 16:45 Order name: Magnesium; Complete Time: 17:52 cp 08/04 16:45 Order name: NT PRO-BNP; Complete Time: 17:52 cp 08/04 16:45 Order name: PT-INR; Complete Time: 17:52 cp 08/04 17:53 Interpretation: Normal except: PT 13.7. cp 08/04 16:45 Order name: Troponin HS; Complete Time: 17:52 cp 08/04 16:45 Order name: COVID-19 Ag + Flu A+B Ag; Complete Time: 18:19 cp 08/04 16:47 Order name: UA Rfx Casey Cult if indicated cp 08/04 20:02 Order name: D-Dimer; Complete Time: 21:06 cp 08/04 21:30 Order name: CBC with Automated Diff EDMS 08/04 21:30 Order name: CBC with Automated Diff EDMS 08/04 21:30 Order name: Comprehensive Metabolic Panel EDMS 08/04 21:30 Order name: Comprehensive Metabolic Panel EDMS 08/04 21:30 Order name: Troponin High Sensitivity EDMS 08/04 21:30 Order name: Troponin High Sensitivity EDMS 08/04 21:30 Order name: Troponin High Sensitivity EDMS 08/04 21:30 Order name: Troponin High Sensitivity EDMS 08/04 16:45 Order name: XRAY Chest (1 view); Complete Time: 17:52 cp 08/04 16:45 Order name: Cardiac monitoring; Complete Time: 17:06 cp 08/04 16:45 Order name: EKG - Nurse/Tech; Complete Time: 17:11 cp 08/04 16:45 Order name: IV Saline Lock; Complete Time: 17:06 cp 08/04 16:45 Order name: Labs collected and sent; Complete Time: 17:06 cp 08/04 16:45 Order name: O2 Per Protocol; Complete Time: 17:06 cp 08/04 16:45 Order name: O2 Sat Monitoring; Complete Time: 17:06 cp EC:35 Rate is 74 beats/min. Rhythm is regular. NV interval is normal. QRS interval is normal. cp QT interval is normal. T waves are Inverted in leads aVR, V2. Interpreted by me. Reviewed by me. Administered Medications: 16:55 Drug: Hydrocodone-Acetaminophen PO (7.5 mg-325 mg) 1 tabs PO once; RASS on ADMIN: jp5 Combtv4, Very Agttd3, Agttd2, Rstlss1, AlertClm0, Drwsy-1, Lt Sdtn-2, Mod Sdtn-3, Dp Sdtn-4, UnArsble-5 Route: PO; 18:54 Follow up: Pain 4/10 Adult; Response: No adverse reaction; Pain is decreased ar8 17:00 Drug: Levalbuterol Inhalation 1.25 mg Inhalation once Route: Inhalation; jp5 17:30 Follow up: Response: No adverse reaction jp5 17:30 Follow up: Response: No adverse reaction jp5 17:00 Drug: Ipratropium Inhalation Aerosol 0.5 mg Inhalation once Route: Inhalation; jp5 17:04 Drug: NS 0.9% IV 500 ml 500 ml IV at 1 bolus once; to be given as a bolus over 60 jp5 minutes Volume: 500 ml; Route: IV; Rate: 1 bolus; Site: left antecubital; 18:15 Drug: Ketorolac IVP 15 mg IVP once Route: IVP; Site: left antecubital; jp5 18:54 Follow up: Pain 4/10 Adult; Response: No adverse reaction; Pain is decreased ar8 20:50 Drug: LORazepam PO 1 mg PO once Route: PO; mf3 21:31 Drug: NS 0.9% IV 500 ml 500 ml IV at 1 bolus once; to be given as a bolus over 60 jb4 minutes Volume: 500 ml; Route: IV; Rate: 1 bolus; Site: left antecubital; 21:32 Drug: morphine IVP or IV 4 mg IVP once over 4 mins Route: IVP; Infused Over: 4 mins; jb4 Site: left antecubital; Disposition Summary: 08/04/25 20:03 Hospitalization Ordered Notes: Hospitalization Status: Observation cp Provider: Lito Gonzales cp Location: Telemetry/MedSurg (observation) cp Condition: Stable cp Problem: new cp Symptoms: have improved cp Bed/Room Type: Standard cp Room Assignment: 413(08/04/25 21:38) vc1 Diagnosis - Chest pain, unspecified cp - Dorsalgia, unspecified cp - Shortness of breath cp Forms: - Medication Reconciliation Form cp - SBAR form cp - Leadership Thank You Letter cp Addendum: 08/06/2025 07:31 Co-signature as Attending Physician, Gigi Sanchez MD I agree with the assessment and c guerrero plan of care. Signatures: Dispatcher [employer] EDGigi Jamison MD MD cha Page, Corey, PA-C PA-C Chilo Drew, RN RN jb4 Anila Alfaro, RN RN vc1 Maribel Reaves, RN RN jp5 Sangita Ruth RN RN kb4 Vivian Briones RN RN mf3 Dino Gonzalez RN ar8 Corrections: (The following items were deleted from the chart) 08/04 16:21 16:18 PMHx: ADD/ADHD; kb4 kb4 16:46 16:46 BASIC METABOLIC PANEL+C.LAB.BRZ ordered. EDMS EDMS 16:46 16:46 CBC+H.LAB.BRZ ordered. EDMS EDMS 16:46 16:46 HEPATIC FUNCTION+C.LAB.BRZ ordered. EDMS EDMS 16:46 16:46 MAGNESIUM+C.LAB.BRZ ordered. EDMS EDMS 16:46 16:46 PROBNP+C.LAB.BRZ ordered. EDMS EDMS 16:46 16:46 PROTIME (+INR)+COAG.LAB.BRZ ordered. EDMS EDMS 16:46 16:46 Troponin High Sensitivity+C.LAB.BRZ ordered. EDMS EDMS 16:46 16:46 COVID-19 Ag + Flu A+B Ag+I.LAB.BRZ ordered. EDMS EDMS 16:46 16:46 Chest Single View+RAD.RAD.BRZ ordered. EDMS EDMS 21:38 20:03 cp vc1
[2025-08-04] MEDS ORDERED: LORAZEPAM 1 MG TABLET ONE (20:48)
[2025-08-04] MEDS ORDERED: ONDANSETRON 4 MG/2 ML VIAL IV PRN (21:25)
--- NOTE | 2025-08-04 21:25 | P.HP ---
Certification for Inpatient Patient admitted to: Observation With expected LOS: <2 Midnights Practitioner: I am a practitioner with admitting privileges, knowledge of patient current condition, hospital course, and medical plan of care. Services: Services provided to patient in accordance with Admission requirements found in Title 42 Section 412.3 of the Code of Federal Regulations Patient History Date of Service: 08/04/25 Reason for admission: CP History of Present Illness: 64-year-old female with past medical history of CAD status post stents, abdominal aneurysm s/p repair, thoracic aneurysm status post stent placement, hypertension, hyperlipidemia, recently diagnosed with lung cancer who was returning home after having a CT started having chest pain which was retrost ernal, sharp, radiating to the back associated with some shortness of breath. Denies any diaphoresis Denies any fever or chills. No nausea vomiting or diarrhea. Patient was assessed in the ER and is admitted for further management of unstable angina Allergies No Known Allergies Allergy (Verified 04/26/19 22:15) Home medications list reviewed: Yes Home Medications: Aspirin 81 mg PO DAILY 04/26/19 Atorvastatin Calcium [Lipitor*] 40 mg PO BEDTIME 04/26/19 Clopidogrel Bisulfate [Plavix] 75 mg PO DAILY 04/26/19 Desvenlafaxine Succinate [Pristiq] 100 mg PO DAILY 04/26/19 Dextroamphetamine/Amphetamine [Adderall 30 mg Tablet] 30 mg PO BID 04/26/19 Quetiapine Fumarate [Seroquel] 300 mg PO BEDTIME 04/26/19 Ropinirole HCl [Requip*] 1 mg PO BID 04/26/19 Tramadol HCl [Ultram] 50 mg PO TID PRN 04/26/19 Zolpidem Tartrate 10 mg PO BEDTIME 04/26/19 clonazePAM [Clonazepam] 2 mg PO TID 04/26/19 - Past Medical/Surgical History Diabetic: No Past Medical History: Reviewed- Non-Contributory -: CAD with prior stents -: Hyperlipidemia -: History of pancreatitis -: GERD -: Depression with anxiety -: AAA Past Surgical History: Reviewed- Non-Contributory -: Heart catheterization with prior stent -: Cholecystectomy Psychosocial/ Personal History: Patient lives at home. - Family History Father -: Heart disease - Social History Smoking Status: Never smoker Alcohol use: No CD- Drugs: No Caffeine use: Yes Review of Systems 10-point ROS is otherwise unremarkable Physical Examination - Vital Signs Temperature: 97.8 F Blood Pressure: 136/72 Pulse: 76 Respirations: 18 Pulse Ox (%): 94 - Physical Exam General: Alert, Oriented x3, Cooperative HEENT: Atraumatic, Normocephalic Neck: Supple, No Thyromegaly Respiratory: Clear to auscultation bilaterally, Normal air movement Cardiovascular: Regular rate/rhythm, Normal S1 S2 Capillary refill: <2 Seconds Gastrointestinal: Soft and benign, W/out hepatosplenomegaly Musculoskeletal: No clubbing, No swelling Integumentary: No rashes Neurological: Other (Awake alert nonfocal) Lymphatics: No axilla or inguinal lymphadenopathy - Studies Laboratory Data (last 24 hrs) 08/04/25 08/04/25 08/04/25 17:03 17:03 17:03 WBC 5.10 Hgb 11.4 L Hct 33.5 L Plt Count 233 PT 13.7 H INR 1.22 Sodium 136 Potassium 3.7 BUN 4 L Creatinine 0.80 Glucose 92 Magnesium 2.2 Total Bilirubin 0.4 AST < 10 L ALT < 14 Alkaline Phosphatase 106 Assessment and Plan - Plan Unstable angina Will trend cardiac enzymes Will monitor telemetry Started on aspirin and statin EKG did not show any acute changes suggestive of ischemia Patient denies any chest pain at the time of interview Will get an echocardiogram Cardiology consult History of thoracic aneurysm Status post stents AAA repair CT findings noted Continue home medication Hypertension Antihypertensives titrated Continue home medications and titrate as needed Hyperlipidemia Continue statin Elevated D-dimer Patient could not do a CT chest PE protocol because of CT with contrast today CT chest PE protocol in a.m. History of lung cancer Outpatient follow-up with oncology GI/DVT prophylaxis Advanced directive full code Discharge Plan: Home Plan to discharge in: 48 Hours - Advance Directives Does patient have a Living Will: No Does patient have a Durable POA for Healthcare: No - Code Status/Comfort Care Code Status: Full Code Time Spent Managing Pts Care (In Minutes): 48
[2025-08-04] MEDS ORDERED: MORPHINE 4 MG/ML SYR ONE (21:27)
[2025-08-04] MEDS ORDERED: MORPHINE 2 MG/ML SYR IV PRN (22:45)
[2025-08-04 22:49] LABS: Urine Microscopic Reflex YN NO UMIC
[2025-08-04 23:52] VITALS: BMI 24.7
[2025-08-05] MEDS: HEPARIN 5000 UNIT/ML 1 ML VIAL SQ SCH (00:09)
[2025-08-05] MEDS: GABAPENTIN 400 MG CAP PO SCH (00:09)
[2025-08-05] MEDS: ROPINIROLE HCL 1 MG TAB PO SCH (00:09)
[2025-08-05] MEDS: QUETIAPINE 100MG TAB PO SCH (00:09)
[2025-08-05] MEDS: TRAZODONE 50 MG TABLET PO SCH (00:09)
[2025-08-05] MEDS: clonazePAM 0.5 MG TAB PO SCH (00:09)
[2025-08-05] MEDS: MORPHINE 4 MG/ML SYR IV PRN ×2 (00:30→21:56)
[2025-08-05] MEDS: HYDROCODONE/APAP 5/325 MG TAB PO PRN (02:27)
[2025-08-05 06:10] LABS: Absolute Lymphocytes (CBC) 1.5 K/uL (0.7-4.9); Hematocrit 31.7 % (36.0-45.0); Hemoglobin 11.0 g/dL (12.0-15.0); MCH 32.0 pg (27.0-35.0); MCHC 34.8 g/dL (32.0-36.0); MCV 91.9 fL (80-100); MPV 6.8 fL (7.6-11.3); Nucleated RBC Absolute Count 0.0 (0-0); Nucleated Red Blood Cells % 0.3 % (0-0); RBC Red Blood Cell Count 3.45 M/uL (3.86-4.86); White Blood Count 3.40 thou/uL (4.3-10.9)
[2025-08-05 06:33] LABS: ALT/SGPT < 14 U/L (13-56); AST/SGOT 12 U/L (15-37); Albumin 2.5 g/dL (3.4-5.0); Albumin/Globulin Ratio 0.7 (1.1-1.8); Alkaline Phosphatase 98 U/L (45-117); Anion Gap 6.8 mEq/L (5.0-15.0); BUN Blood Urea Nitrogen 6 mg/dL (7-18); Globulin 3.8 g/dL (2.3-3.5); Glucose Level 86 mg/dL (74-106); Potassium 3.8 mEq/L (3.5-5.1); Troponin High Sensitivity 8.3 pg/mL (<58.9)
[2025-08-05] MEDS ORDERED: INFLUENZA VACCINE (for 6+ mo) 0.5 ML DOSE IMVAC ONE (08:00)
[2025-08-05] MEDS: EZETIMIBE 10 MG TAB PO SCH (08:41)
[2025-08-05] MEDS: POTASSIUM CL SA 10 MEQ TAB PO ONE (08:41)
[2025-08-05] MEDS: ATORVASTATIN 20 MG TAB PO SCH (08:41)
[2025-08-05] MEDS: ASPIRIN EC 81 MG TAB PO SCH (08:42)
[2025-08-05] MEDS: NEBIVOLOL HCL 5 MG TAB PO SCH (08:42)
[2025-08-05] MEDS: ISOSORBIDE MONO SR 60 MG TAB PO SCH (08:42)
[2025-08-05] MEDS: NICOTINE 7 MG/PAT TD SCH (08:43)
[2025-08-05] MEDS: AMLODIPINE 5 MG TAB PO SCH (08:43)
[2025-08-05] MEDS: HOME MED 1 EA UNK (Venlafaxine Hcl [Effexor] 25 MG Tablet) PO SCH (09:00)
[2025-08-05] MEDS ORDERED: clonazePAM 0.5 MG TAB PO SCH (09:00)
--- NOTE | 2025-08-05 11:53 | P.CNS ---
Date of Consult: 08/05/25 Chief Complaint: CP History of Present Illness: Patient with PMH of PVD s/p bilateral aortfemoral bypass, also history of Abdominal aortic aneurysm s/p endograft repair, ascending aorta aneurysm s/p stent repair, history of CAD, [employer] and calcified mid LAD disease, presented with chest pain radiating to her back, denies having any other cardiac symptoms, no palpitations, no syncope. Allergies adhesive tape Allergy (Verified 08/04/25 22:58) Itching/Hives/Rash Home medications list reviewed: Yes Home Medications: Atorvastatin Calcium [Lipitor*] 80 mg PO DAILY 04/26/19 Quetiapine Fumarate [Seroquel] 300 mg PO BEDTIME 04/26/19 Ropinirole HCl [Requip*] 4 mg PO BEDTIME 04/26/19 clonazePAM [Clonazepam] 0.5 mg PO TID 04/26/19 Amlodipine [Norvasc] 5 mg PO DAILY 08/04/25 Ezetimibe 10 mg PO DAILY 08/04/25 Gabapentin 400 mg PO BID 08/04/25 Isosorbide Mononitrate [Isosorbide Mononitrate ER] 60 mg PO DAILY 08/04/25 Nebivolol HCl 2.5 mg PO DAILY 08/04/25 Nicotine [Nicotine Patch] 1 each TD DAILY 08/04/25 Trazodone HCl 100 mg PO BEDTIME 08/04/25 Venlafaxine HCl [Effexor] 25 mg PO DAILY 08/04/25 - Past Medical/Surgical History Diabetic: No -: CAD with prior stents -: Hyperlipidemia -: History of pancreatitis -: GERD -: Depression with anxiety -: AAA -: Heart catheterization with prior stent -: Cholecystectomy Psychosocial/ Personal History: Patient lives at home. - Family History Father Medical History: Heart disease - Social History Smoking Status: Current some day smoker Alcohol use: No CD- Drugs: No Caffeine use: Yes Place of Residence: Home Review of Systems 10-point ROS is otherwise unremarkable Physical Examination Temp Pulse Resp BP Pulse Ox 97.6 F 61 17 138/84 97 08/05/25 08:00 08/05/25 08:43 08/05/25 10:50 08/05/25 08:43 08/05/25 10:50 General: Alert, In no apparent distress HEENT: Atraumatic, PERRLA, Mucous membr. moist/pink, EOMI, Sclerae nonicteric Neck: Supple, 2+ carotid pulse no bruit, No LAD, Without JVD or thyroid abnormality Respiratory: Clear to auscultation bilaterally, Normal air movement Cardiovascular: Regular rate/rhythm, Normal S1 S2 Gastrointestinal: Normal bowel sounds, No tenderness Musculoskeletal: No tenderness Integumentary: No rashes Neurological: Normal gait, Normal speech, Normal tone, Normal affect Lymphatics: No axilla or inguinal lymphadenopathy Laboratory Data (last 24 hrs) 08/04/25 08/04/25 08/04/25 17:03 17:03 17:03 WBC 5.10 Hgb 11.4 L Hct 33.5 L Plt Count 233 PT 13.7 H INR 1.22 Sodium 136 Potassium 3.7 BUN 4 L Creatinine 0.80 Glucose 92 Magnesium 2.2 Total Bilirubin 0.4 AST < 10 L ALT < 14 Alkaline Phosphatase 106 - Problems (1) Chest pain Current Visit: Yes Status: Acute Plan: ACS ruled out as patient troponin are negative x3, patient coronary angiogram done back in 2019 reviewed ans shown [employer], moderate proximal calcified LAD disease. continue ASA 81 mg daily continue lipitor 80 mg daily continue Zetia 10 mg daily continue Imdur 60 mg daily outpatient follow up with cardiology (she is scheduled to follow up with [facility]) (2) PVD (peripheral vascular disease) Current Visit: Yes Status: Acute Plan: complex history with abdominal aorta endograft repair, stent in ascending aorta and bilateral aortofemoral bypass, continue ASA, statins continue to follow up with vascular team as outpatient. (3) HTN (hypertension) Current Visit: Yes Status: Acute Plan: continue Imdur, Norvasc and Nebivolol.
[2025-08-05] MEDS: NA CHLORIDE 0.9% 250 ML IV ONE (16:13)
[2025-08-05] MEDS: DEPO-MEDROL 40 MG/ML IM ONE (18:05)
[2025-08-05] MEDS: ACETAMINOPHEN 325 MG TABLET PO PRN (18:19)
[2025-08-05] MEDS ORDERED: ROPINIROLE HCL 1 MG TAB PO SCH (21:00)
[2025-08-05 23:01] VITALS: O2SAT 97
[2025-08-06] MEDS: TRAZODONE 50 MG TABLET PO SCH (01:00)
[2025-08-06] MEDS: POTASSIUM CL SA 10 MEQ TAB PO ONE (12:06)
[2025-08-06 12:46] VITALS: BP 152/79; TEMP 98
== END 2025-08-06 14:13 | disposition home or self-care (01) ==
LOC: ER 16:08 → 4TH 21:25
PROVIDERS: ADMIT Family Medicine; ATTEND Hospitalist
DX: R07.9 Chest pain, unspecified (principal); I25.10 Atherosclerotic heart disease of native coronary artery without angina pectoris; I73.9 Peripheral vascular disease, unspecified; I10 Essential (primary) hypertension; E78.5 Hyperlipidemia, unspecified; C34.90 Malignant neoplasm of unspecified part of unspecified bronchus or lung; R06.02 Shortness of breath; R79.1 Abnormal coagulation profile; Z95.5 Presence of coronary angioplasty implant and graft; Z11.52 Encounter for screening for COVID-19
CPT/HCPCS: 93005; 93306; 85025 ×2; 80048; 36415 ×2; 83735; 84100; 85610; 85379; 80076; 81003; 84484 ×4; 80053; 83880; 71045; 96375; 96374; 99285; 87428; J1885; J1644 ×5; J1010; J7614; J7644; J7050; J7040 ×2; G0378